=== PATIENT | female | born 1985 | race Caucasian/White ===

== ENCOUNTER 2018-04-09 18:13 | Emergency (ER) | payer BC, SELFPAY ==
--- NOTE | 2018-04-09 18:13 | DT_ITS ---
This patient was seen during an EMR downtime April 05, 2018 - April 12, 2018. This patient may have a combination of paper and electronic documentation or all paper documentation. All documentation is viewable within the e-chart portion of [employer] for each patient visit.
--- OUTSIDE RECORDS SUMMARY | 2018-04-14 16:34 | XMS RPT_ITS ---
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 SignedIntakeVital Signs10/29/17 Height 5 ft 6 in10/29/17 Weight: 131 lb10/29/17 Body Mass Index (BMI) 21.112 Blood Pressure 124/ Blood Pressure Location Rt brachialIntakeVisit Reasons: dizzy/no PCPChief Complaint: dizzinessIs patient in pain?: NoAllergiesNo Known Allergies Allergy (Verified 08/21/17 09:29)Medicationsfluticasone 50 mcg/actuation nasal spray,suspension 2 spray INTRANASAL QDAY #16 g 10/29/17 [RxConfirmed 10/29/17]PFSHMedical History ( Reviewed 10/29/17 @ 17:45 by Eugene Bills, TOP AND TRIM WORKER-C)Abdominal pain (Acute)Ovarian cyst (Acute)Surgical History History of placement of ear tubes (Acute)History of tonsillectomy (Acute)history of mole removal (Acute)Family History Mother DiabetesCancerskinFather HypertensionHyperlipemiaAnxiety and depressionBrother celiacGrandmother CancerskinDiabetesSocial HistorySmoking Status: Current every day smokerhow long ago did patient quit smokinalcohol intake: neverwhat type of physical activity do you participate in: noneHPIdizzy/no PCP:Chief Complaint: dizzinessDetails: ALIN LEÓN, is a 32 F who presents to the office today for for an acute visit ofdizziness. She has no significant past medical history.The patient states that over the past month or so, she has had 3 dizzy spells where she noted achange in vision and a headache. On one occasion she became nauseated as well. The episodeslasted a couple minutes and resolved after sitting down. She is not currently having anysymptoms at this time. She denies any chance of at this time. She states that herallergies have been flared up over the past month as well as she constantly has nasalcongestion and sometimes has pressure in her ears. She does state that she has a history ofrecurrent ear infections in the past. She states that her blood pressure runs low at timeswith the systolic being 100 and diastolic between 60s, however the patient tries to make surethat she has adequately hydrated throughout the day. She denies any other alleviating oraggravating factors. She does state that her mother has a history of diabetes and that she haschecked her blood sugar in the past some has not been low. She does note occasional legcramping as well and states that she was previously seen in the emergency department forabdominal pain with questionable appendicitis, however she states that it ended up being aruptured ovarian cyst. She currently denies any abdominal pain at this time.She otherwise denies any fever, chills, lesions, syncope or presyncopal episodes. She deniesany history of vertigo.Duration: about a monthROSConstConstitutional: Positive for headache(s) (with the dizziness);no weight change, body ache, chills, fatigue, sleep problems, fever(s), change in appetite,snoring, weakness, frequent falls or excessive sweatingEyesEyes: Positive for blurry vision;no change in vision, eye pain or light sensitivityENTENT: Positive for headache(s) (with the dizziness) and nasal congestion;no abnormal hearing, ear pain, tinnitus, sore throat or neck painRespRespiratory: No snoring, cough, shortness of breath or wheezingCardioCardiology: No excessive sweating, chest pain at rest, chest pain with exertion, shortness ofbreath, dyspnea on exertion, palpitations , orthopnea or lightheadednessGastroGI: Positive for nausea/dyspepsia (with the dizzy spells);no abdominal pain, change in bowel habits, constipation, diarrhea, vomiting or crampingMuscMusculoskeletal: No neck pain, abnormal walking, joint pain, back pain, limited range of motionor muscle weaknessSkinSkin: No redness, dry skin, itching, lesions, wounds or rashNeuroNeurology: Positive for headache(s) (with the dizziness) and dizziness;no weakness, frequent falls, abnormal hearing, abnormal walking, abnormal speech or memory lossPsychPsychiatric: No change in appetite , No memory loss, Positive for anxiety, Positive fordepression (was on wellbutrin in the past, feels better now.), No Thoughts of harmingyourself/OthersEndoEndocrine: No fatigue, excessive sweating, cold intolerance, increased thirst/drinking, heatintolerance, flushing or increased hungerAller/ImmAllergy/Immunologic: No wheezing, itchy eyes, hives or seasonal allergy symptomsHema/LympHematologic/Lymphatic: No easy bleeding, easy bruising or enlarged lymph nodesExamConstGeneral: cooperative, comfortable, no acute distressNutritional Appearance: average body habitus, well nourishedOrientation: alert, oriented z4Uqydaixixve: mental status not alteredHENMTHead: normal to inspectionEars: hearing grossly normal bilaterally, TM abnormal scarred bilaterally and with fluidbehind the TM (Clear) bilaterallyNose: external nose normal, no nasal polyps, nasal discharge clear bilaterally, mucousmembranes and turbinates abnormal erythematous bilaterally and other (Edematous)Face and sinus: normal facial examMouth: oral mucosae normalTeeth and gingiva: dentition normalThroat: posterior oropharynx normalEyesGeneral: appearance normal, both eyes and all related structuresVisual Saunders: normal visual saunders by confrontationAlignment and Position: alignment normalPupils: PERRLEOM: No nystagmusRespEffort AND Inspection: normal respiratory effort, able to speak in complete sentences, normalrespiratory pattern, symmetric chest movement, no audible wheezes, no coughAuscultation: Bilateral: Clear to AuscultationCardioPalpation: normal PMIRate: regular rateHeart Sounds: S1 normal, S2 normal, normal S1 and S2, no click, no gallops, no murmurs, no rubsMuscMusculoskeletal: No joint tenderness, decreased ROM or muscle weaknessSkinGeneral: no rashes or lesions noted, elasticity normal, turgor normalLesions: no lesionsRashes: no rashesNeuroGeneral: alert, awake, oriented x3, CN's II-XI intact bilaterallyCranial Nerves: no nystagmusSpeech: speech normalGait: normal gaitMotor: muscle tone normal throughoutExtremGeneral: normal to inspection, normal gait, no edema, no pedal edemaPsychAppearance: grossly normalMental Status: mental status grossly normalAffect: normal affectAttitude: cooperativeThought Process: normalAssessment AND Plan1. Chronic non-seasonal allergic rhinitis, unspecified trigger J30.89; J30.89PlanThe patient does have symptoms consistent with that of allergic rhinitis. Her nasal mucosa isgrossly edematous bilaterally and she has clear fluid present bilateral TMs. Will startpatient on Flonase and discussed the use of a daily antihistamine. Educated patient not totake her antihistamine combined with Sudafed as this can be addictive and that plain loratadinewould suffice. Patient verbalized understanding.2. Dizziness P86DaxjKgabdyoa for orthostatic hypotension on exam. Did however discussed adequate fluid intake. Donot believe that this is vertigo,. Believe that this may be secondary due to inner ear fluid.3. Leg cramping R25.2PlanWe will check an electrolyte panel and also magnesium level. Discussed adequate fluidhydration.OrdersOrders:4. Encounter for preventative adult health care examination Z00.00PlanPatient will follow up in 1 month for her annual physical/well visit. She states she chmb-ap-kifw on the influenza vaccination.Donaldo disclaimerPlan DetailOther OrdersOrders:Other MedicationsNew:fluticasone 50 mcg/actuation (Flonase Allergy Relief) adminis2 sprays Intranasal QDAYter into each nostrilFollow Up1 month annual physicalCodingLevel of Care CodeOff vis,new,level 3DiagnosesChronic non- seasonal allergic rhinitis, unspecified trigger J30.89; J30.89Chronicity: chronicAllergic rhinitis trigger: unspecifiedAllergic rhinitis seasonality: non- seasonalDizziness R42Leg cramping R25.2Encounter for preventative adult health care examination Z00. 1800 <Electronically signed by Eugene FERRER>Date Eugene GARIBAYCCosigner Signature: Date (if applicable)CC: PROGRESS Observed: 08/28/2017 Status: COMPLETED Source: [place] 10:16 AM [facility] [place] [facility] O ID: [id number]: Darling Ballard MaService: (none) Author Type: (none)Type: Progress NotesFiled: 08/28/2017 10:20 AMNote Text:31 year old female here for INACTIVATED INFLUENZA VACCINE.9698-5919 SeasonPatient is identified by name and date of : Yes [] CONTRAINDICATIONS colorenhanced sectionAge less than 6 months? NoAllergy to eggs, chicken, chicken feathers, or chicken dander? NoAllergy to thimerosal (a preservative) or formaldehyde? NoHistory of severe reaction to any vaccine component or a previous dose ofinfluenza vaccination? NoHistory of Guillain-Amsterdam Syndrome within 6 weeks after a previousinfluenza vaccine? NoCurrent moderate or severe illness? NoCurrent temperature greater or equal to 100.4F? NoHistory of Bone Marrow Transplant in past 6 months or solid organtransplant in the past 3 months ? No [] VERIFICATIONcolor enhanced sectionWas the answer Yes for any of the above contraindications? Nocontraindications present. Acceptable to proceed with vaccine.Patient/ guardian agrees the above answers are true to the best of theirknowledge? YesFlu vaccine information sheet given? YesSee immunization activity in [facility] for details of immunizationsadminstered today.Patient age: [age] year old For The 4621-3325 Flu Season 6-35 months old: Fluzone 0.25 ml - IM (Preservative Free)3 years of age: Fluzone 0.5 ml - IM (Preservative Free)3 years and older: Fluzone 0.5 ml- IM-(with Preservatives)65+ years old: Fluzone High-Dose 0.5 ml - IM ( Preservative Free)REMEMBER: If patient is less than 9 years of age and this is the firstvaccine of Influenza to be received in any flu season, they should receivea second dose in one months time.Darling Ballard Ma CNNURSE Observed: 08/28/2017 Status: COMPLETED Source: [place] 10:00 AM [facility] REPOSITORY Nurse Visit (PEDSWS) ---------ALIN LEÓN ([id number]) 1985 FDate Time Provider Dnbjuteurg47/27/17 10:00 AM NURSE/[facility] PEDSWS During your visit today, we recorded the following information about you:Darling Ballard Owen 08/28/2017 10:20 AM Yuxsfj37 year old female here for INACTIVATED INFLUENZA VACCINE. SeasonPatient is identified by name and date of : Yes [] CONTRAINDICATIONS color enhancedsectionAge less than 6 months? NoAllergy to eggs, chicken, chicken feathers, or chicken dander? NoAllergy to thimerosal (a preservative) or formaldehyde? NoHistory of severe reaction to any vaccine component or a previous dose ofinfluenza vaccination? NoHistory of Guillain-Amsterdam Syndrome within 6 weeks after a previous influenzavaccine? NoCurrent moderate or severe illness? NoCurrent temperature greater or equal to 100.4F? NoHistory of Bone Marrow Transplant in past 6 months or solid organ transplant inthe past 3 months ? No [] VERIFICATION colorenhanced sectionWas the answer ANDquot; YesANDquot; for any of the above contraindications? Nocontraindications present. Acceptable to proceed with vaccine.Patient/guardian agrees the above answers are true to the best of theirknowledge? YesFlu vaccine information sheet given? YesSee immunization activity in [facility] for details of immunizations adminsteredtoday.Patient age: [age] year old For The Flu Season 6-35 months old: Fluzone 0.25 ml - IM (Preservative Free)3 years of age: Fluzone 0.5 ml - IM ( Preservative Free)3 years and older: Fluzone 0.5 ml- IM-(with Preservatives)65+ years old: Fluzone High-Dose 0.5 ml - IM (Preservative Free)REMEMBER: If patient is less than 9 years of age and this is the first vaccineof Influenza to be received in any flu season, they should receive a seconddose in one months time.Darling Alonso Provider: ADDIE DOWNEY [[id number]]Allergies As of Date: 2016(No Known Allergies)Date Reviewed: 12/07/2016Reviewed by: Morena Mahmood Snowboarding Instructor - Fully AssessedReason for Visit: Imm/Inj [58] Cmt: Flu VaccinePrimary Visit Diagnosis:Need for vaccination [Z23 ]Order(s):INFLUENZA VACCINE QUADRIVALENT AGE 3 YRS PLUS + IM [[id number]] Order #: [id number] as of 08/28/2017 Sig: [id number]-G* Take 1 Dose by mouth as direc* ONDANSETRON 4 MG DISINTEGRATI* Take 1 tablet by mouth every * * VITAMIN,CALCIUM, MINE* Take 1 tablet by mouth.Problem List As Of Date 08/28/2017 Noted Resolved History of depression [Z86.59] INVALID FOR*04/25/2015 More... Quit smoking [ Z87.891] INVALID FOR*04/25/2015 More... needs rhogam [O09.899] INVALID FOR*04/25/2015 Supervision of other normal [Z34.80] INVALID FOR* More... GBS (group B Streptococcus carrier), +RV cultur*INVALID FOR*08/17/2014Encounter Number: [id number] Status:Closed by DARLING BALLARD MA on 08/28/17 EMERGENCY DEPARTMENT Observed: 08/22/2017 Status: F Source: [place] SUMMARY 5:08 PM [facility] [address] [place], [place] [address]Uqbgzndnh Department Cpvwwoc00/20/17 0956MR#: [id number] Acct: [id number]: ALIN LEÓN Rep #: [id number]: 1985 31 From: Juan Diego Hancock DOPCP: Care Physician,No Primary Status: DEP ER- ER Visit SummaryDate of Service: 08/21/17Chief Complaint: Abdominal painHistory of Present Illness: The patient is a 31 F who presents with abdominal pain. Shedescribed this as a aching sensation. She states it began last night around 2200 hrs. He hasbeen constant since. She denies any diarrhea or constipation. No nausea vomiting. No urinarysymptoms. No fevers. She did not eat breakfast this morning due to been afraid as to what itwill make her stomach feel like. She states the right lower side of her abdomen feels worsethan any other part but she feels it diffusely across. Last menstrual period was 2 weeks ago.Physical Examination: Afebrile vital signs are stableGen: Well-nourished well-developedHead: Normocephalic atraumaticEyes: Perrl EOMIENT: TMs clear no rhinorrhea moist mucous membranesNeck: Supple no lymphadenopathy no JVD nontenderCVS: Regular rate rhythm no murmurs normal S1-T1Fltcoklpddf: No distress clear to auscultation bilaterally chest nontenderAbdomen: Soft nondistended normal bowel sounds no masses mild tenderness to palpation diffuselymoderate to palpation in the right lower quadrant without guarding or rebound.Back: NontenderExtremity: Nontender no edemaSkin: Normal color no rashNeuro: alert orientated 3 CN II-XII intact normal strength sensation reflexes gait cerebellarPsych: Normal affect normal moodTest Results: White count is elevated at 15.5. Urinalysis normal. test negative.CT abdomen pelvis demonstrated a 9 mm tubular structure with possible inflammatory changes. CTwas read as cannot rule out appendicitis. There is also an apparent right ovarian cyst withpossible recent rupture.Emergency Department Course and Treatment: Dr. Sullivan is the on- call surgeon today. He came tot emergency department to evaluate the patient. It is his opinion that a laparoscopy is notindicated at this time. Patient will be discharged home follow-up with him tomorrow ifcontinued or worsening symptoms or return to the emergency department. Patient is verycomfortable with this plan.Disposition: HomeImpression:1. Acute abdominal pain2. Right ovarian cyst3. Possible acute appendicitisED Disposition- Plan for ED Patient:Disposition: Home or Assisted LivingChi Complaint: Abd PainInstructions: ED Abdominal Pain Appendx PossReferrals:Care Physician,No Primary [Primary Care Provider] -Sharan Gibbs MD [STAFF PHYSICIAN] - 1 Day for another examWhat to do if you have ProblemsFor any increased pain, shortness of breath, bleeding, nausea or vomiting, chest pain, or anyunexpected problems, contact your Primary Care Provider. Call [facility] ([phone])or report to the closest Emergency Room.Call 911 if necessary. [phone] <Electronically signed by Juan Diego Hancock DO>Date Juan Diego Hancock DOCosigner Signature (If Indicated): Date CC: No Primary Care Physician CONSULTATION Observed: 08/21/2017 Status: F Source: [place] 6:58 PM [facility] [address] [place], [place] [address]Vjsxblhgeyzv08/20/17 1850#: [id number] Acct: [id number]: ROMELIA,ALIN Rep #: [id number]: 1985 31 From: Sharan Gibbs MDPCP: Care Physician,No Primary Status: DEP ER YLocation: EDProblem List(1) Abdominal painStatus: AcuteQualifiers:Abdominal location: lower abdomen, unspecified Qualified Code(s): R10.30 - Lower abdominalpain, unspecifiedReason for ConsultDate of Consultation: 08/21/17History of Present Illness:The patient is a 31 year old F who presented to the emergency room today with a almost 24 hourhistory of lower abdominal pain. I was asked to see this patient by emergency room physician electronic copy my surgical consult recommendations will return to him. Patientdeveloped lower abdominal pain was not able to sleep all night. She points to the low abdomenbelow the umbilicus and extending to both sides. She has never had a pain like this before.Laboratory was obtained demonstrating white count of 15.5 and hemoglobin 15.4 hematocrit 46 perry platelet count of 337,000 [address] scan was obtained suggesting a tubularstructure in the right lower quadrant. Possible appendicitis though the interpretingradiologist does not actually state acute appendicitis. There is felt to be stranding aroundthe cecum. There is some free fluid in the pelvis. There is a ruptured ovarian cyst.I was asked to see this patient in part secondary to the presenting complaint of abdominal painleukocytosis and unfortunately vague CT interpretation. I initially reviewed the CT with ourcal radiologist Dr. Bentley and the findings on the CT interpretation could not besubstantiated. There was felt to be possibly a normal sized appendix in the right lowerquadrant though this was indeterminate. There was not felt to be pericecal stranding nor adefinitive acute appendicitis on CT. Doubt this actually would fit well with the patient. Shedenies fever. There is been no nausea or vomiting. No change in bowel habits no diarrhea noconstipation. She states that actually now the pain is improved over yesterday. The pain isnot localizing to the right lower quadrant.Past Medical HistoryAllergiesNo Known Allergies Allergy (Verified 09:29)Home Medications:Ambulatory OrdersMedication Instructions RecordedNo Known/Unobtainable [No Known 08/21/17Home Medications]Surgical History: - - PE tubes and tonsillectomy and adenoidectomy as a childGYN History: No pertinent DIRECT SUPPORT STAFF historySmoking Status: Current every day smoker- *Family History OffspringHistory Items: UnknownReview of SystemsConstitutional: Denies: Weight ChangeEyes: Denies: Blurred vision, Vision ChangeHEENT: Denies: Ear Pain, Eye PainCardiovascular: Denies: Chest Pain, ClaudicationRespiratory: Denies: Cough, Shortness of BreathGastrointestinal: Reports: - - Mild diffuse low abdominal pain bilaterally.Genitourinary: Denies: Dysuria, HematuriaMusculoskeletal: Denies: Leg PainSkin: Denies: JaundiceNeurological: Denies: ConfusionPsychiatric: Denies: DepressionEndocrine: Denies: Change in Body HabitusHematologic/ Lymphatic: Denies: Easy Bleeding- Physical ExamGeneral: Alert, Oriented x3, Cooperative, No apparent distressHEENT: AtraumaticOral: Moist MucosaNeck: SuppleLungs: Clear to auscultationCardiovascular: Regular rateAbdomen: Bowel Sounds Present, Soft, - - Very minimal tenderness to quite deep palpation rightlower quadrant. Squishy bowel. No mass. No rebound. No guarding. No inguinal hernia.Extremities: No clubbingSkin: No rashesMusculoskeletal: No Tenderness to Palpation of Joints or ExtremitiesVital SignsTemp Pulse Resp BP Pulse Ox97.9 F 91 16 115/79 09:29 13:10 08/21/17 13:10 08/21/17 13:10 08/21/17 13:10Oxygen Delivery Method Room AirWeight: 132 lb 0.91 ozBody Mass Index (BMI) 21.3Laboratory Tests Past 24 HrsWBCRBCHgbHctMCVMCHMCHCRDWRDW DifferentialPlt CountMPVImmature Gran % (Auto)Assessment/PlanI have in detail reviewed the patient's laboratory and imaging and clinical presentation. Christianne discussed with the patient treatment options. Currently her symptoms are improved overyesterday. I am not finding her particularly tender in the right lower quadrant. Imagingreviewed with local radiology does not confirm findings that would suggest acute appendicitis.With all of this in mind I have a lower suspicion for acute appendicitis at this time. Thepatient is very much aware of her situation. I believe that she is a highly motivated patientwho will be able to notify us if she has abdominal deterioration. I feel comfortable allowingher to be discharged. The patient is additionally provided a contact number and card and sheis to phone call me during my office hours tomorrow morning with a progress report. Thepatient is aware that if she deteriorates prior to that she is to return to the emergency room.My diagnosis is one of a ruptured ovarian cyst with peritoneal irritation as a consequence ofthat.She has had an opportunity to ask and have questions answered. She is very much agreeable withthis plan of approach.I very much appreciate the kind opportunity of assisting with her surgical careSharan Gibbs M.D., F.A.C.S.08/21/17 [id number] <Electronically signed by Sharan Gibbs MD>Date Sharan Gibbs MDCosigner Signature (if applicable): Date CC: Juan Diego Hancock DO; No Primary Care Physician Signed URINALYSIS, COMPLETE Collected: 08/21/2017 Status: F Source: [place] 10:20 AM [facility] REPOSITORY Order Comment: Order Date: 08/21/17How was Urine Obtained? CLEAN CATCH TYPE CODE TESTS RESULT OUT OF RANGE REFERENCE UNITS LAB L400.3000 Normal Yellow COLOR Yellow LAB L400.3050 Normal Clear CLARITY Clear LAB L400.3200 Normal Normal mg/dl GLUCOSE, UR Normal LAB L400.3300 Normal Negative mg/dL BILIRUBIN Negative URINE LAB L400.3400 Normal Negative mg/dl KETONE UR Negative LAB L400.3465 Normal 1.002-1.030 SP.GR. 1.010 DIPSTX LAB L400.3550 Normal 5.0 - 8.0 pH UR 6.5 LAB L400.3600 Normal Negative mg/dl PROT DIPSTX Negative LAB L400.3700 Normal Normal mg/dl UROBILI Normal LAB L400.3750 Normal Negative NITRITE UR Negative LAB L400.3780 High Negative /ul OCCULT 25 BLOOD-UR LAB L400.3800 High Negative /ul LEUK 25 ESTERASE LAB L400.4050 Normal 0-5 /hpf WBC 0-5 SEEN LAB L400.4100 Normal 0-5 /hpf RBC-UA 0-5 SEEN LAB L400.4150 Normal 5-10 /hpf SQUAM EPI 0-5 SEEN LAB L400.4300 Normal None Seen /hpf BACTERIA RARE LAB L400.4350 Normal <or=2+ /hpf MUCUS, RARE URINE Performed By: #### L400.0001 ####[facility] [address] [place], [address] CBC W/DIFF, AUTOMATED Collected: 08/21/2017 Status: C Source: [place] 10:00 AM [facility] REPOSITORY TYPE CODE TESTS RESULT OUT OF RANGE REFERENCE UNITS LAB L100.1000 High 4.4-11.0 K/mm3 WBC 15.5 LAB L100.1200 Normal 4.2-5.4 M/mm3 RBC 4.97 LAB L100.1300 High 12.0-15.0 g/dl HGB 15.4 LAB L100.1400 Normal 37-47 % HCT 46.1 LAB L100.1500 Normal 81-99 fL MCV 92.8 LAB L100.1600 Normal 27.0-32.0 pg MCH 31.0 LAB L100.1700 Normal 32-36 g/gl MCHC 33.4 LAB L100.1810 Normal 11.6-14.6 % RDW 13.1 CV LAB L100.1820 High 35.1-43.9 fl RDW 44.7 SD LAB L100.1900 Normal 150-450 K/mm3 PLT 333 LAB L100.2000 Normal 6.2-12.0 fl MPV 9.6 LAB L100.2100 High 47-70 % NEUT% 72.2 LAB L100.2200 Low 19-41 % LY% 15.7 LAB L100.2300 High 0-10 % MONO% 11.4 LAB L100.2400 Normal 0-5 % EO% 0.1 LAB L100.2500 Normal 0-1 % BASO% 0.3 LAB L100.2550 Normal 0.0-0.9 % IM 0.300 GRAN % Result Comment: IG% - Immature Granulocytes (promyelocytes, myelocytes andmetamyelocytes) > 1% indicates that a LEFT SHIFT is Present. LAB L100.2620 High 2.0-7.7 X10 3/uL Absolute 11.2 Neut LAB L100.2720 Normal 0.83-4.51 X10 3/ul Absolute 2.42 Lymph LAB L100.4500 Normal SMEAR COMMENT COMMENT Result Comment: SLIDE SCANNED - MONOCYTOSIS NOTED. LAB L100.9900 Normal PATH Reviewed REV Result Comment: Neutrophilic leukocytosis.Clinical correlation necessary.Remington Guillaume M.D. 08/24/17 AMENDED REPORT 08/24/17 1336 PATH REV previously reported as: March neal Performed By: #### L100.0100 ####[facility] [address] [place], [place], [id number] COMPREHENSIVE METABOLIC Collected: 08/21/2017 Status: F Source: [place] PROFIL 10:00 AM [facility] REPOSITORY TYPE CODE TESTS RESULT OUT OF RANGE REFERENCE UNITS LAB L501.0100 Normal 70-110 mg/dL GLU 88 LAB L501.1000 Normal 7-18 mg/dL BUN 8 LAB L501.1100 Normal 0.55-1.02 mg/dL 0.89 CREAT,SERUM Result Comment: The validity of the calculated GFR AND GFRAA in patients over70 years has not been determined. Clinical correlation isessential. LAB L501.1110 Normal >60 mL/min EST GFR 79 Result Comment: Non- GFR Calc LAB L501.1115 Normal >60 mL/min EST GFR - 95 AA Result Comment: GFR Calc LAB L501.1255 Normal ml/min Estimated 86.53 CRCL LAB L501.1300 Low 10-20 RATIO BUN/CRE 9.0 LAB L501.1500 High 6.4-8. g/dL T PROT 8.7 2 LAB L501.1800 Normal 3.4-5. g/dL ALB 4.3 0 Result Comment: Please note revised Albumin AND Globulin reference rangeeffective 2017. LAB L501.1950 High 2.2-4.2 g/dL GLOB 4.4 LAB L501.2000 Normal 0.9-2.4 RATIO A/G 1.0 LAB L501.2200 Normal 8.5-10.1 mg/dL CA 8.9 LAB L501.4100 Low 15-37 U/L AST 13 LAB L501.4305 Normal 45-117 U/L ALK P 107 LAB L501.4405 Normal 12-78 U/L ALT 22 LAB L501.4600 Normal 0.20-1.00 mg/dL T BILI 0.50 LAB L501.5300 Normal 136-145 mmol/L NA 138 LAB L501.5600 Normal 3.5-5.1 mmol/L K 3.5 LAB L501.5900 Normal 98-107 mmol/L CL 103 LAB L501.6100 Normal 21.0-32.0 mmol/L CO2 27.0 LAB L501.6200 Normal 5-15 GAP 8 Performed By: #### L500.4050, L501.2450 ####[facility] [address] [place], [address] LIPASE Collected: 08/21/2017 Status: F Source: [place] 10:00 AM [facility] REPOSITORY TYPE CODE TESTS RESULT OUT OF RANGE REFERENCE UNITS LAB L501.2450 Normal 73-393 U/L LIPASE 98 Performed By: #### L500.4050, L501.2450 ####[facility] [address] [place], [address] ,SERUM,HCG QUALI. Collected: Status: F Source: [place] 08/21/2017 10:00 AM [facility] REPOSITORY TYPE CODE TESTS RESULT OUT OF REFERENCE UNITS RANGE LAB L700.6700 Normal =>Qualitati mIU/mL HCG Qual < 1 ve triggr LAB L700.7000 Normal 0-9 Nonpreg Negative HCGSQUAL NEGATIVE Performed By: #### L700.6800 ####[facility] [address] [place], [address] ABDOMEN/PELVIS WITH Observed: 08/21/2017 Status: F Source: [place] CONTRAST 9:46 AM [facility]ITORY [facility] [address] [place], [place] [address]Bfynezt/Pelvis WITH ContrastMR#: [id number] Acct: [id number]: ALIN LEÓN Rep #: [id number]: 1985 F 31 From: Mendoza Schaffer DOPCP: Care Physician,No Primary Status: REG ERStudy: Abdomen/Pelvis WITH Contrast Date of Exam: 08/21/17Exam# [id number] Ordering Dr: Juan Diego Hancock DOSTUDY: CT ABDOMEN AND PELVIS WITH CONTRASTREASON FOR EXAM: Female, 31 years old. Abdominal pain. Right lowerquadrant pain.RADIATION DOSAGE (If Supplied By Facility): CTDIvol = ( 7.53 ) mGy, DLP = ( 380.67 ) mGycmTECHNIQUE: Transaxial images were obtained from the dome of the diaphragmto the symphysis pubis with oral contrast. 75ML ml of Isovue 300 contrastwas administered. Sagittal and coronal images were reconstructed.Individualized dose optimization techniques were used for this CT.COMPARISON: None. FINDINGS:The visualized lung bases are unremarkable. The visualized portions of theheart are within normal limits.Normal liver. Normal gallbladder and extrahepatic biliary system. Normalspleen. Normal pancreas.Normal bilateral adrenal glands.Normal right kidney. Normal left kidney.Normal visualized stomach. Normal small intestine. Normal colon. Thereis a mildly dilated tubular structure in the right lower quadrant withoutcontrast measuring 9 mm. There appears to be some periappendiceal fatstranding. Acute appendicitis cannot be excluded.Normal abdominal aorta. Normal inferior vena cava. Normalretroperitoneum.Normal urinary bladder. Normal visualized uterus. Small rim-enhancingfollicle in the right ovary, likely recently ruptured. Trace pelvic freefluid.Normal abdominal wall. L5-S1 degenerative disc disease. ORDER #: [id number] CT/Abdomen/ Pelvis WITH ContrastIMPRESSION:1. Possible acute uncomplicated appendicitis. Recommend clinicalcorrelation2. Possibly recently ruptured right ovarian follicle. Trace pelvic freefluidElectronically Signed:Mendoza Schaffer DO at 12:24 EDTTel , Service support , AF: Juan Diego Hancock DO; No Primary Care Physician Field Research Assistant:Signed ALLERGIES ALLERGIES DATE TYPE / CODE NAME / CODE REACTION SEVERITY SOURCE 08/21/2017 Drug No Known Unknown [facility] Allergy/416 Allergies/J08145 Hospital 406522(SNOM 0388(RXNORM) Repository ED CT) Drug/546027 No Known [facility] 003(SNOMED Allergies [facility] CT) System Repository Drug NO KNOWN [facility] Class/75795 ALLERGIES [place] 1003(SNOMED Repository CT) ENCOUNTERS ENCOUNTERS ADMIT/DISCHARGE ACCOUNT ADMITTING ENCOUNTER LOCATION SOURCE NUMBER CLASS 04/09/2018/04/09/20 [id number] [place], Emergency [address] ing:[facility] System EDRoom: WR Repository 11/26/2017/11/26/19 [id number] Ambulatory BMSBuilding:B Bhupendra [address] MS.[facility] Repository 10/30/2017/11/03/19 [id number] Ambulatory [address] Repository 10/30/2017 [id number] Ambulatory [facility] ing:MTLAB Repository 10/29/2017/10/29/20 [id number] Ambulatory BMSBuilding:B Bhupendra 17 MS.[facility] Repository 08/28/2017/08/31/20 [id number] Ambulatory [address] Repository 08/21/2017/08/21/20 [id number] Emergency [address] ing:ED Repository PAYERS PAYERS ENCOUNTER GUARANTOR PAYER SUBSCRIBER SOURCE 04/09/2018 ALIN Toribio Primary Insurance:[address] [place] [address] Mal[facility] MCINTIREDOB: [employer] LIABPolicy MCINTIREDOB: [facility] [id number] Number: Effective [id number] [facility] WOJCIECH FLOOD, Date:2018-04-09 [facility] [id number], [place] [address]Vsr: Name:CD:[id number]: [place], [place] () [address]BQ: [phone] () [phone] () 11/26/2017 Kaye E Primary Kaye Dulce ArroyoBhupendra [id number] Insurance:ANTHEMPolic McintireDOB: [facility] WOJCIECH FLOOD Number: [id number] [facility] Care [facility] [address]Xax: [id number] Repository Date:1381-46-29[address] () [address], [place] [address]FG: 11/26/2017 Secondary NOT GIVENUNK Bhupendra Insurance:SELF PAY [facility] Number: Effective Repository Date:2017-10-29 10/30/2017 Kaye Cardona Primary Kaye Cardona Bhupendra [id number] Insurance:ANTHEMPolic McintireDOB: Community WOJCIECH [address], y Number: [id number] Health Care Center [address]Gwg: [id number] Repository Date:5940-70-55Js [address] () [id number] [place] [address]ME: 10/30/2017 Secondary NOT GIVENUNK [place] Insurance:SELF PAY [facility] Number: Effective Repository Date:2017-10-30 10/29/2017 Kaye Cardona Primary Kaye Dulce Bhupendra [id number] Insurance:ANTHEMPolic McintireDOB: Community WOJCIECH RDSHREVE, y Number: [id number] Health Care Center [address]Ich: [id number] Repository Date:0450-95-30Ea [address] () [id number] [place] [address]BH: 10/29/2017 Secondary NOT GIVENUNK [place] Insurance:SELF PAY [facility] Number: Effective Repository Date:2017-10-29 08/21/2017 Kaye Cardona Primary Kaye Cardona Bhupendra [id number] Insurance:ANTHEMPolic McintireDOB: Community WOJCIECH [address]SH[address]VE, y Number: [id number] Health Care Center [address]Nne: [id number] Repository Date:[id number] [address] () [id number], [place] [address]EM: 08/21/2017 Secondary NOT GIVENUNK [place] Insurance:SELF PAY [facility] Number: Effective Repository Date:2017-08-21
== END 2018-04-09 18:25 | disposition left against medical advice (07) ==
LOC: ED 04-14 13:24
DX: R69 Illness, unspecified (principal)

== ENCOUNTER → 2018-07-15 10:12 | Outpatient (CLI) | payer BC, SELFPAY ==
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
--- OUTSIDE RECORDS SUMMARY | 2018-07-15 13:46 | XMS RPT_ITS ---
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 3DiagnosesChronic non- seasonal allergic rhinitis, unspecified trigger J30.89; J30.89Chronicity: chronicAllergic rhinitis trigger: unspecifiedAllergic rhinitis seasonality: non- seasonalDizziness R42Leg cramping R25.2Encounter for preventative adult health care examination Z00. 1800 <Electronically signed by Eugene Bills NP-C>Date Eugene Bills FULL STACK WEB DEVELOPER-CCosigner Signature: Date (if applicable)CC: PROGRESS Observed: 08/28/2017 Status: COMPLETED Source: [place] 10:16 AM [facility] REPOSITORY O ID: [id number]: Darling Ballard MaService: (none) Author Type: (none)Type: Progress NotesFiled: 08/28/2017 10:20 AMNote Text:31 year old female here for INACTIVATED INFLUENZA VACCINE.9044-0007 SeasonPatient is identified by name and date of : Yes [] CONTRAINDICATIONS colorenhanced sectionAge less than 6 months? NoAllergy to eggs, chicken, chicken feathers, or chicken dander? NoAllergy to thimerosal (a preservative) or formaldehyde? NoHistory of severe reaction to any vaccine component or a previous dose ofinfluenza vaccination? NoHistory of Guillain-Matthews Syndrome within 6 weeks after a previousinfluenza [...] information sheet given? YesSee immunization activity in [facility] for details of immunizationsadminstered today.Patient age: [age] year old For The 6088-3774 Flu Season 6-35 months old: Fluzone 0.25 [...] Ma CNNURSE Observed: 08/28/2017 Status: COMPLETED Source: [place] 10:00 AM [facility] REPOSITORY Nurse Visit (PEDSWS) ---------ALIN LEÓN ([id number]) 1985 [facility] Pkbmjprgei77/27/17 10:00 AM [facility] During your visit today, we recorded the following information about you:Darling Ballard Ma 08/28/2017 10:20 AM Yxagry70 year old female here for INACTIVATED INFLUENZA VACCINE.5345-5931 SeasonPatient is identified by name and date of : Yes [] CONTRAINDICATIONS color enhancedsectionAge less than 6 months? NoAllergy to eggs, chicken, chicken feathers, or chicken dander? NoAllergy to thimerosal (a preservative) or formaldehyde? NoHistory of severe reaction to any vaccine component or a previous dose ofinfluenza vaccination? NoHistory of Guillain-Matthews Syndrome within 6 weeks after a previous [...] information sheet given? YesSee immunization activity in [facility] for details of immunizations adminsteredtoday.Patient age: [age] year old For The 3825-3610 Flu Season 6-35 months old: Fluzone 0.25 [...] receive a seconddose in one months time.Darling Mellosurprise valley community hospitaljeff Provider: ADDIE DOWNEY [[id number]]Allergies As of Date: 2016(No Known Allergies)Date Reviewed: 12/07/2016Reviewed by: Morena Mahmood Patient Safety Sitter - Fully AssessedReason for Visit: Imm/Inj [58] Cmt: Flu VaccinePrimary Visit Diagnosis:Need for vaccination [Z23 ]Order(s):INFLUENZA VACCINE QUADRIVALENT AGE 3 YRS PLUS + IM [18167PUR] Order #: [id number] as of 08/28/2017 Sig: YJAVOCTXTCBWW-RQMBHGIGLDFYY-P* Take 1 Dose by mouth as direc* [...] B Streptococcus carrier), +RV cultur*INVALID FOR*08/17/2014Encounter Number: [id number] Status:Closed by DARLING BALLARD MA on 08/28/17 EMERGENCY DEPARTMENT Observed: 08/22/2017 Status: F Source: [place] SUMMARY 5:08 PM [facility] REPOSITORY [facility]ITALMedical Records [address]sp[address] [place], [place] [address]Osmbkgbkm Department Ztamcot84/20/17 0956MR#: [id number] Acct: [id number]: ALIN ELÓN Rep #: [id number]: 1985 31 From: Juan [...] nontenderCVS: Regular rate rhythm no murmurs normal S1-H7Rxooxmssrbn: No distress clear to auscultation bilaterally chest [...] your Primary Care Provider. Call [facility] ([phone])or report to the closest Emergency Room.Call 911 if necessary. 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[employer] SALESPERSON historySmoking Status: Current every day smoker- *Family [...] with her surgical careSharan Gibbs M.D., F.A.C.S.08/21/17 4305 <Electronically signed by Sharan Gibbs MD>Date Sharan Gibbs [facility] Signature (if applicable): Date CC: Juan Diego Hancock DO; No Primary Care Physician Signed URINALYSIS, COMPLETE Collected: 08/21/2017 Status: F Source: [place] 10:20 AM [facility] REPOSITORY Order Comment: Order Date: 08/21/17How was [...] MUCUS, RARE URINE Performed By: #### L400.0001 ####[facility] [address] [place], [place], [id number] CBC W/DIFF, AUTOMATED Collected: 08/21/2017 Status: C Source: [place] 10:00 AM [facility] REPOSITORY TYPE CODE TESTS RESULT OUT OF [...] as: March neal Performed By: #### L100.0100 ####[facility] [address] [place], [place], [address] COMPREHENSIVE METABOLIC Collected: 08/21/2017 Status: F Source: [place] [address]:00 AM [facility] REPOSITORY TYPE CODE TESTS RESULT OUT OF [...] GAP 8 Performed By: #### L500.4050, L501.2450 ####[facility] [address] [place], [address] LIPASE Collected: 08/21/2017 Status: F Source: [place] 10:00 AM [facility] REPOSITORY TYPE CODE TESTS RESULT OUT OF RANGE REFERENCE UNITS LAB L501.2450 Normal 73-393 U/L LIPASE 98 Performed By: #### L500.4050, L501.2450 ####[facility] [address] [place], [address] ,SERUM,HCG QUALI. Collected: Status: F Source: [place] 08/21/2017 10:00 AM [facility] REPOSITORY TYPE CODE TESTS RESULT OUT OF REFERENCE UNITS RANGE LAB L700.6700 Normal =>Qualitati mIU/mL HCG Qual < 1 ve triggr LAB L700.7000 Normal 0-9 Nonpreg Negative HCGSQUAL NEGATIVE Performed By: #### L700.6800 ####[facility] [address] [place], [address] ABDOMEN/PELVIS WITH Observed: 08/21/2017 Status: F Source: [place] CONTRAST 9:46 AM [facility] REPOSITORY [facility]OS[facility]ITALImaging [address] [place], [place] [address]Fhqvwka/Pelvis WITH ContrastMR#: [id number] Acct: [id number]: ALIN LEÓN Rep #: [id number]: 1985 F 31 From: Mendoza Schaffer DOPCP: Care Physician,No Primary Status: REG ERStudy: Abdomen/Pelvis WITH Contrast Date of Exam: 08/21/17Exam# [id number] Ordering Dr: Juan Diego Hancock DOSTUDY: CT [...] wall. L5-S1 degenerative disc disease. ORDER #: [id number] CT/Abdomen/ Pelvis WITH ContrastIMPRESSION:1. Possible acute uncomplicated appendicitis. Recommend clinicalcorrelation2. Possibly recently ruptured right ovarian follicle. Trace pelvic freefluidElectronically Signed:Mendoza Schaffer DO at 12:24 EDTTel , Service support , TR: Juan Diego Hancock DO; No Primary Care Physician Dialysis Rn:Signed ALLERGIES ALLERGIES DATE TYPE / CODE NAME / CODE REACTION SEVERITY SOURCE 07/09/2018 Drug No Known Unknown [facility] Allergy/416 Allergies/H01567 Hospital 337142(SNOM 0388(RXNORM) Repository ED CT) Drug/608370 No Known [facility] 003(SNOMED Allergies [facility] CT) System Repository Drug NO KNOWN [facility] Class/50755 ALLERGIES [facility] 1003(SNOMED Repository CT) ENCOUNTERS ENCOUNTERS ADMIT/DISCHARGE ACCOUNT NUMBER ADMITTING ENCOUNTER LOCATION SOURCE CLASS 07/15/2018 [id number] Ambulatory [facility] ding:MTRAD Repository 07/15/2018 [id number] [facility] ding:PT Repository 07/09/2018/07/09/20 [id number] Ambulatory BMSBuilding: Bhupendra 18 BMS.[facility] [place] [place] Repository 06/04/2018/06/04/20 [id number] Ambulatory BMSBuilding: Bhupendra 18 BMS.[facility] [place] [place] Repository 04/19/2018/04/19/20 [id number] Ambulatory BMSBuilding: [place] 18 BMS.[facility] [place] [place] Repository 04/09/2018/04/09/20 [id number] [place], Emergency [address] ding:[facility] System EDRoom: WR Repository 04/09/2018/04/09/20 [id number] Emergency [address] ding:ED Repository 04/09/2018 [id number] Ambulatory [address] [place] [address] Repository 11/26/2017/11/26/19 [id number] Ambulatory BMSBuilding: [place] 18 BMS.[facility] [place] [place] Repository 10/30/2017/11/03/19 [id number] Ambulatory [address] Repository 10/30/2017 [id number] Ambulatory [facility] ding:MTLAB Repository 10/29/2017/10/29/20 [id number] Ambulatory BMSBuilding: Bhupendra 17 BMS.[facility] [place] [place] Repository 08/28/2017/08/31/20 [id number] Ambulatory [address] Repository 08/21/2017/08/21/20 [id number] Emergency [address] ding:ED Repository PAYERS PAYERS ENCOUNTER GUARANTOR PAYER SUBSCRIBER SOURCE 07/15/2018 Kaye E Primary Kaye Dulce Huizar [id number] Insurance:ANTHEMPolic McintireDOB: [facility] WOJCIECH LANDRY, y Number: [id number] View Regional Medical Center [address]Apm: [id number] Repository Date:7333-43-34[address], [place] [address]AQ: 07/15/2018 Secondary NOT GIVENUNK Bhupendra Insurance:SELF PAY [facility] Number: Effective Repository Date:2018-07-15 07/15/2018 Kaye E Primary Kaye Huizar [id number] Insurance:ANTHEMPolic McintireDOB: Community WOJCIECH RDSHREVE, y Number: [id number] View Regional Medical Center [address]Kcw: [id number] Repository Date:8545-54-35Fw [address] () [address]Gwmfejx [place] [address]IS: 07/15/2018 Secondary NOT GIVENUNK [place] Insurance:SELF PAY [facility] Number: Effective Repository Date:2018-06-08 07/09/2018 Kaye E Primary Kaye Huizar [id number] Insurance:ANTHEMPolic McintireDOB: Community WOJCIECH RDSHREVE, y Number: [id number] View Regional Medical Center [address]Day: [id number] Repository Date:7980-86-37Eq [address] () [address]Sqxqjta [place] [address]NK: 07/09/2018 Secondary NOT GIVENUNK [place] Insurance:SELF PAY [facility] Number: Effective Repository Date:2018-07-09 06/04/2018 Kaye E Primary Kaye Huizar [id number] Insurance:ANTHEMPolic McintireDOB: Community WOJCIECH RDSHREVE, y Number: [id number] View Regional Medical Center [address]Ivs: [id number] Repository Date:3316-53-24Jb [address] () [address]Cnwaofc [place] [address]SC: 06/04/2018 Secondary NOT GIVENUNK Bhupendra Insurance:SELF PAY [facility] Number: Effective Repository Date:2018-06-04 04/19/2018 Kaye E Primary Kaye Huizar [id number] Insurance:ANTHEMPolic McintireDOB: Community WOJCIECH [address]SH[address], y Number: [id number] View Regional Medical Center [address]Zgk: [id number] Repository Date:9808-94-62Oz [address] () [address]Lzzvzrb [place] [address]XQ: 04/19/2018 Secondary NOT GIVENUNK Bhupendra Insurance:SELF PAY [facility] Number: Effective Repository Date:2018-04-19 04/09/2018 [facility] Insurance:[address] [place] [address] MCINTIREDOB: [employer] LIABPolicy MCINTIREDOB: [facility] [id number] Number: Effective [id number] System WOJCIECHYASH LANDRY, Date:2018-04-09 WOJCIECH Repository [place] [id number] [place] [address]Vii: Name::[id number]: [place]CIECH [place], [place] ([place]) [address]EL: (282) () [phone] () 04/09/2018 Kaye E Primary Kaye Huizar [id number] Insurance:ANTHEMPolic McintireDOB: Community WOJCIECH RICHARE, y Number: [id number] View Regional Medical Center [address]Vil: [id number] Repository Date:8385-28-73Bw [address] ) [address]Nohsvzb, [place] [address]EK: 04/09/2018 Secondary NOT GIVENUNK Bhupendra Insurance:SELF PAY [facility] Number: Effective Repository Date:2018-04-09 04/09/2018 [facility] MCINTIREDOB: Insurance:Self MCINTIREDOB: [facility] Hospitaly Number: [id number] Repository WOJCIECHYASH Landry, Effective Date: 4 [facility] [address]Ydr: Name:[facility] CentertenishaSHEYENNE, [place] [address]Qli: [phone] () 11/26/2017 Kaye E Primary Kaye Huizar [id number] Insurance:ANTHEMPolic McintireDOB: Community WOJCIECH ALEENA, y Number: [id number] View Regional Medical Center [address]Hdm: [id number] Repository Date:3358-12-03Qk [address] () [address]Pbmnyzi, [place] [address]WG: 11/26/2017 Secondary NOT GIVENUNK [place] Insurance:SELF PAY [facility] Number: Effective Repository Date:2017-10-29 10/30/2017 Kaye E Primary Kaye Cardona [place] [id number] Insurance:ANTHEMPolic McintireDOB: Community WOJCIECH RDSHREVE, y Number: [id number] View Regional Medical Center [address]Lfn: [id number] Repository Date:8282-64-18Ev [address] () [address]Adxtvhd, [place] [address]KS: 10/30/2017 Secondary NOT GIVENUNK Bhupendra Insurance:SELF PAY [facility] Number: Effective Repository Date:2017-10-30 10/29/2017 Kaye E Primary Kaye Dulce Bhupendra [id number] Insurance:ANTHEMPolic McintireDOB: Community WOJCIECH [address]SH[address], y Number: [id number] View Regional Medical Center [address]Yhv: [id number] Repository Date:4382-60-33Fw [address] () [address]Zbbclwr [place] [address]HS: 10/29/2017 Secondary NOT GIVENUNK [place] Insurance:SELF PAY [facility] Number: Effective Repository Date:2017-10-29 08/21/2017 Kaye E Primary Kaye Cardona Bhupendra [id number] Insurance:ANTHEMPolic McintireDOB: Community WOJCIECH RDSHREVE, y Number: [id number] View Regional Medical Center [address]Yqm: [id number] Repository Date:1983-30-71Ng [address] () [address]Gnhdslm, [place] [address]NU: 08/21/2017 Secondary NOT GIVENUNK [place] Insurance:SELF PAY [facility] Number: Effective Repository Date:2017-08-21
== END ==
PROVIDERS: Family Provider Internal Medicine; PCP Internal Medicine; Visit Provider Nurse Practitioner Family
DX: M54.6 Pain in thoracic spine (principal); R20.0 Anesthesia of skin; M48.07 Spinal stenosis, lumbosacral region
CPT/HCPCS: 72072; 72100

== ENCOUNTER 2018-07-20 09:30 | Outpatient (RCR) | payer BC, SELFPAY ==
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
--- OUTSIDE RECORDS SUMMARY | 2018-06-15 19:15 | XMS RPT_ITS ---
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 (FLONASE) 50 mcg/actuation nasal sprayUse 1 [place] in each nostril daily at bedtime.Disp: Rfl: PAP FLUID CERVICAL SCREENING [[id number]] Order #: [id number]. #:[id number] HPV W/GENOTYPE [ SQHPVHRR] Order #: [id number]. #:[id number] as of 2016 Sig: FLUTICASONE 50 MCG/ACTUATION * Use 1 [place] in each nostril d*Problem List As Of [...] Update Route: EACH NOSTRIL Sig: Use 1 [place] in each nostril daily at bedtime.Medications Discontinued During This Encounter Yjwvcbcanfazd-Vicvpkptfmuyr-HH (TYLE* 30 t* 0 12/07/2016 10/30/2017 Route: ORAL Sig: Take 1 Dose by mouth as directed. Patient not taking: Reported on 10/30/2017 Disc: Discontinued by Patient ondansetron orally disintegrating (Z* 2 ta* 0 12/07/2016 10/30/2017 Route: ORAL Sig: Take 1 tablet by mouth every 8 hours as needed for Nausea/Vomiting for up to 2 doses. Disc: Discontinued by Patient Dkjiewbv-Jb-Vlv- Fe-FA (PREN* 10/30/2017 Class: Historical Med Route: ORAL Sig: Take 1 tablet by mouth. Disc: Discontinued by PatientDisposition: Return in 1 year (on 2017) for Annual Exam.Follow-up and Disposition History RecordedLetter [facility] [place], [place] [address]Davly: Rachel A [address] [place] [address]CCF: [id number] Rachel,We are pleased to inform you that your [...] 8:00 a.m. and 5:00p.m.Sincerely,Beth Jasmine MDEncounter Number: [id number] Status: Closed by BETH JASMINE MD on 10/30/17 PROGRESS Observed: 10/30/2017 Status: COMPLETED Source: [place] 9:29 AM [facility] REPOSITORY HNO ID: [id number]: Beth JasmineService: (none) Author Type: PhysicianType: Progress NotesFiled: 10/30/2017 10:30 AMNote Text:Alin León is a 32 year old who presents for her annualgynecologic exam without complaints.Menses: cycles every 28-30 days and 7 days of flow.Contraception: vasectomyHPV vaccine: NoLast Pap: 2014 normal HPV: N/AHistory of abnormal pap: NoLast mammogram: neverObstetric History T2 L2 SAB0 TAB1 Ectopic0 Multiple0 Live Krompj9MFBB MEDICAL HISTORYDiagnosis Date- DEPRESSION- FRACTURE AGE 9 [...] external genitalia normal, normal Bartholin's glands, urethra, Brooksburg's glands, no vulvar lesions, no cervical lesions, [...] F Source: [place] PROFILE (BMP) 8:42 AM [facility] REPOSITORY TYPE CODE TESTS RESULT OUT OF [...] Performed By: #### L500.2500, L500.4100, L501.5200, L501.9520 ####[facility] [address] [place], [place], [id number] LIPID PROFILE Collected: 10/30/2017 Status: F Source: [place] 8:42 AM [facility] REPOSITORY TYPE CODE TESTS RESULT OUT OF [...] Performed By: #### L500.2500, L500.4100, L501.5200, L501.9520 ####[facility] [address] [place], [place], [id number] MAGNESIUM Collected: 10/30/2017 Status: F Source: [place] 8:42 AM [facility] REPOSITORY TYPE CODE TESTS RESULT OUT OF RANGE REFERENCE UNITS LAB L501.5200 Normal 1.8-2.4 mg/dL MG 2.1 Performed By: #### L500.2500, L500.4100, L501.5200, L501.9520 ####[facility] [address] [place], [place], [address] THYROID STIM HORMONE Collected: 10/30/2017 Status: F Source: [place] (TSH) 8:42 AM [facility] REPOSITORY TYPE CODE TESTS RESULT OUT OF RANGE REFERENCE UNITS LAB L501.9520 Normal 0.358-3.74 uIU/mL TSH 1.46 Performed By: #### L500.2500, L500.4100, L501.5200, L501.9520 ####[facility] [address] [facility] [address] [place], [place], [address] CBC W/DIFF, AUTOMATED Collected: 10/30/2017 Status: F Source: [place] 8:42 AM [facility] REPOSITORY TYPE CODE TESTS RESULT OUT OF [...] Absolute Lymph 2.13 Performed By: #### L100.0100 ####[facility] [address] [place], [place], [address] INTERNAL MEDICINE Observed: 10/29/2017 Status: F Source: [place] OFFICE VISIT 6:00 PM [facility] REPOSITORY [place] Internal [address] [place] [address] [place] [address] [phone] VISITDate of Service: 10/29/17MR#: [id number] Acct: [id number]: ALIN LEÓN Rep #: [id number]: 1985 Provider: Eugene Bills NPAge/Sex: 32/F Location: [facility].BIMStatus: SignedIntakeVital Signs10/29/17 Height 5 ft 6 in10/29/17 Weight: 131 lb10/29/17 Body Mass Index (BMI) 21.112 Blood Pressure 124/ Blood Pressure Location Rt brachialIntakeVisit Reasons: dizzy/no PCPChief Complaint: dizzinessIs patient in pain?: NoAllergiesNo Known Allergies Allergy (Verified 08/21/17 09:29)Medicationsfluticasone 50 mcg/actuation nasal spray,suspension 2 spray INTRANASAL QDAY #16 g 10/29/17 [RxConfirmed 10/29/17]PFSHMedical History ( Reviewed 10/29/17 @ 17:45 by NABIL Womack)Abdominal pain (Acute)Ovarian cyst (Acute)Surgical History History of [...] office [facility] She has no significant past medical history.The [...] average body habitus, well nourishedOrientation: alert, oriented v6Vsynelxjlxx: mental status not alteredHENMTHead: normal to inspectionEars: [...] plain loratadinewould suffice. Patient verbalized understanding.2. Dizziness B94EqzbAqldkspb for orthostatic hypotension on exam. Did however [...] her annual physical/well visit. She states she mhfg-gq-sjvr on the influenza vaccination.Donaldo disclaimerPlan DetailOther OrdersOrders:Other MedicationsNew:fluticasone 50 mcg/actuation (Flonase Allergy Relief) adminis2 sprays Intranasal QDAYter into each nostrilFollow Up1 month annual physicalCodingLevel of Care CodeOff vis,new,level 3DiagnosesChronic non- seasonal allergic rhinitis, unspecified trigger J30.89; J30.89Chronicity: chronicAllergic rhinitis trigger: unspecifiedAllergic rhinitis seasonality: non- seasonalDizziness R42Leg cramping R25.2Encounter for preventative adult health care examination Z00. 1800 <Electronically signed by Eugene GARIBAYC>Date Eugene GARIBAYCCosigner Signature: Date (if applicable)CC: PROGRESS Observed: 08/28/2017 Status: COMPLETED Source: [place] 10:16 AM [facility] REPOSITORY O ID: [id number]: Darling Ballard MaService: (none) Author Type: (none)Type: Progress NotesFiled: 08/28/2017 10:20 AMNote Text:31 year old female here for INACTIVATED INFLUENZA VACCINE.8591-2265 SeasonPatient is identified by name and date of : Yes [] CONTRAINDICATIONS colorenhanced sectionAge less than 6 months? NoAllergy to eggs, chicken, chicken feathers, or chicken dander? NoAllergy to thimerosal (a preservative) or formaldehyde? NoHistory of severe reaction to any vaccine component or a previous dose ofinfluenza vaccination? NoHistory of Guillain-[place] Bay Syndrome within 6 weeks after a previousinfluenza [...] information sheet given? YesSee immunization activity in [facility] for details of immunizationsadminstered today.Patient age: [age] year old For The 0183-8216 Flu Season 6-35 months old: Fluzone 0.25 [...] Ma CNNURSE Observed: 08/28/2017 Status: COMPLETED Source: [place] 10:00 AM [facility] REPOSITORY Nurse Visit (PEDSWS) ---------ALIN LEÓN ([id number]) 1985 FDate Time Provider Hjawvqrsue16/27/17 10:00 AM [facility] During your visit today, we recorded the following information about you:Darling Ballard Ma 08/28/2017 10:20 AM Ztgijh24 year old female here for INACTIVATED INFLUENZA VACCINE.6789-0581 SeasonPatient is identified by name and date of : Yes [] CONTRAINDICATIONS color enhancedsectionAge less than 6 months? NoAllergy to eggs, chicken, chicken feathers, or chicken dander? NoAllergy to thimerosal (a preservative) or formaldehyde? NoHistory of severe reaction to any vaccine component or a previous dose ofinfluenza vaccination? NoHistory of Guillain-[place] Bay Syndrome within 6 weeks after a previous [...] information sheet given? YesSee immunization activity in [facility] for details of immunizations adminsteredtoday.Patient age: [age] year old For The 5727-8840 Flu Season 6-35 months old: Fluzone 0.25 [...] receive a seconddose in one months time.Darling Ballard [facility] Provider: ADDIE DOWNEY [[id number]]Allergies As of Date: 2016(No Known Allergies)Date Reviewed: 12/07/2016Reviewed by: Morena Mahmood Event Producer - Fully AssessedReason for Visit: Imm/Inj [58] Cmt: Flu VaccinePrimary Visit Diagnosis:Need for vaccination [Z23 ]Order(s):INFLUENZA VACCINE QUADRIVALENT AGE 3 YRS PLUS + IM [[id number]] Order #: [id number] as of 08/28/2017 Sig: YIIXADGFBDBLY-OTFPFJPBTOJMJ-O* Take 1 Dose by mouth as direc* [...] B Streptococcus carrier), +RV cultur*INVALID FOR*08/17/2014Encounter Number: [id number] Status:Closed by DARLING BALLARD MA on 08/28/17 EMERGENCY DEPARTMENT Observed: 08/22/2017 Status: F Source: [place] SUMMARY 5:08 PM [facility] REPOSITORY [facility] [address] [place], [place] [address]Uaoxgptmc Department Cibfsps90/20/17 0956MR#: [id number] Acct: [id number]: ALIN LEÓN Rep #: [id number]: 1985 31 [...] nontenderCVS: Regular rate rhythm no murmurs normal S1-S6Vfzgrucupcw: No distress clear to auscultation bilaterally chest [...] Plan for ED Patient:Disposition: Home or Assisted LivingChief Complaint: Abd PainInstructions: ED Abdominal Pain Appendx PossReferrals:Care Physician,No Primary [Primary Care Provider] -Sharan Gibbs MD [STAFF PHYSICIAN] - 1 Day for another examWhat to do if you have ProblemsFor any increased pain, shortness of breath, bleeding, nausea or vomiting, chest pain, or anyunexpected problems, contact your Primary Care Provider. Call [facility] ([phone])or report to the closest Emergency Room.Call 911 if necessary. 1708 <Electronically signed by Juan Diego Hancock DO>Date Juan Diego Hancock DOCosigner Signature (If Indicated): Date CC: No Primary Care Physician CONSULTATION Observed: 08/21/2017 Status: F Source: [place] 6:58 PM [facility] REPOSITORY [facility] [address] [address]Bqppsbumxzsi90/20/17 1850MR#: [id number] Acct: [id number]: ALIN LEÓN Rep #: [id number]: 1985 31 From: Sharan [...] adenoidectomy as a childGYN History: No pertinent PELLETIZER historySmoking Status: Current every day smoker- *Family [...] with her surgical careSharan Gibbs M.D., F.A.C.S.08/21/17 3598 <Electronically signed by Sharan Gibbs MD>Date Sharan Gibbs MDCosigner Signature (if applicable): Date CC: Juan Diego Hancock DO; No Primary Care Physician Signed URINALYSIS, COMPLETE Collected: 08/21/2017 Status: F Source: [place] 10:20 AM [facility] REPOSITORY Order Comment: Order Date: 08/21/17How was [...] MUCUS, RARE URINE Performed By: #### L400.0001 ####[facility] [address] [place], [place], [phone] CBC W/DIFF, AUTOMATED Collected: 08/21/2017 Status: C Source: [place] 10:00 AM [facility] REPOSITORY TYPE CODE TESTS RESULT OUT OF [...] as: March neal Performed By: #### L100.0100 ####[facility] [address] [place], [address] COMPREHENSIVE METABOLIC Collected: 08/21/2017 Status: F Source: [facility] 10:00 AM [facility] REPOSITORY TYPE CODE TESTS RESULT OUT OF [...] GAP 8 Performed By: #### L500.4050, L501.2450 ####[facility] [address] [place], [place], [address] LIPASE Collected: 08/21/2017 Status: F Source: [place] 10:00 AM [facility] REPOSITORY TYPE CODE TESTS RESULT OUT OF RANGE REFERENCE UNITS LAB L501.2450 Normal 73-393 U/L LIPASE 98 Performed By: #### L500.4050, L501.2450 ####[facility] [address], [address] ,SERUM,HCG QUALI. Collected: Status: F Source: [place] 08/21/2017 10:00 AM [facility] REPOSITORY TYPE CODE TESTS RESULT OUT OF REFERENCE UNITS RANGE LAB L700.6700 Normal =>Qualitati mIU/mL HCG Qual < 1 ve triggr LAB L700.7000 Normal 0-9 Nonpreg Negative HCGSQUAL NEGATIVE Performed By: #### L700.6800 ####[facility] [address] [place], [address] ABDOMEN/PELVIS WITH Observed: 08/21/2017 Status: F Source: [place] CONTRAST 9:46 AM [facility] REPOSITORY [facility] [address] [place], [place] [address]Bnbagrj/Pelvis WITH ContrastMR#: [id number] Acct: [id number]: ALIN LEÓN Rep #: [id number]: 1985 F 31 From: Mendoza Schaffer DOPCP: Care Physician,No Primary Status: REG ERStudy: Abdomen/Pelvis WITH Contrast Date of Exam: 08/21/17Exam# [id number] Ordering Dr: Juan Diego Hancock DOSTUDY: CT [...] wall. L5-S1 degenerative disc disease. ORDER #: [id number] CT/Abdomen/ Pelvis WITH ContrastIMPRESSION:1. Possible acute uncomplicated appendicitis. Recommend clinicalcorrelation2. Possibly recently ruptured right ovarian follicle. Trace pelvic freefluidElectronically Signed:Mendoza Schaffer DO at 12:24 EDTTel , Service support , QL: Juan Diego Hancock DO; No Primary Care Physician [employer] Service Team Member:Signed ALLERGIES ALLERGIES DATE TYPE / CODE NAME / CODE REACTION SEVERITY SOURCE 08/21/2017 Drug No Known Unknown [facility] Allergy/416 Allergies/R41565 Hospital 870158(SNOM 0388(RXNORM) Repository ED CT) Drug/357009 No Known Zoroastrian 003(SNOMED Allergies [facility] CT) System Repository Drug NO KNOWN [facility] Class/16713 ALLERGIES [place] 1003(SNOMED Repository CT) ENCOUNTERS ENCOUNTERS ADMIT/DISCHARGE ACCOUNT ADMITTING ENCOUNTER LOCATION SOURCE NUMBER CLASS 06/15/2018 [id number] Ambulatory [facility] ing:PT Repository 06/04/2018/06/04/20 [id number] Ambulatory BMSBuilding:Osmar [place] [address] Repository 04/19/2018/04/19/20 [id number] Ambulatory BMSBuilding:B Bhupendra [address].[facility] Repository 04/09/2018/04/09/20 [id number] [place], Emergency [address] ing:[facility] EDRoom: WR Repository 04/09/2018/04/09/20 [id number] Emergency [address] ing:ED Repository 11/26/2017/11/26/19 [id number] Ambulatory BMSBuilding:B Bhupendra [address].[facility] Repository 10/30/2017/11/03/19 [id number] Ambulatory [address] Repository 10/30/2017 [id number] [facility] Rep[facility] 10/29/2017/10/29/20 [id number] Ambulatory BMSBuilding:B Bhupendra [address] [facility] Repository 08/28/2017/08/31/20 [id number] Ambulatory [address] Repository 08/21/2017/08/21/20 [id number] Emergency [address] ing:ED Repository PAYERS PAYERS ENCOUNTER GUARANTOR PAYER SUBSCRIBER SOURCE 06/15/2018 Kaye Huizar [id number] Insurance:ANTHEMPolic McintireDOB[facility] y Number: [id number] Medical Center [address]Fvs: [id number] Repository Date:2051-35-14[address] () [address], [place] [address]BG: 06/15/2018 Secondary NOT GIVENUNK Bhupendra Insurance:SELF PAY [facility] Number: Effective Repository Date:2018-06-08 06/04/2018 Kaye Huizar [id number] Insurance:ANTHEMPolic McintireDOB: [facility], y Number: [id number] Medical Center [address]Nht: [id number] Repository Date:3263-60-29[address] () [address], [place] [address]LP: 06/04/2018 Secondary NOT GIVENUNK Bhupendra Insurance:SELF PAY [facility] Number: Effective Repository Date:2018-06-04 04/19/2018 Kaye E Primary Kaye Cardona Bhupendra [id number] Insurance:ANTHEMPolic McintireDOB: Community [address]CI[address]SHRE[address], y Number: [id number] Medical Center [address]Ard: [id number] Repository Date:1221-85-05Js [address] () [address] [place] [address]CP: 04/19/2018 Secondary NOT GIVENUNK [place] Insurance:SELF PAY [facility] Number: Effective Repository Date:2018-04-19 04/09/2018 ALIN Toribio Primary Insurance[facility] ALIN Hauser MCINTIREDOB: DEMOCRAT LIABPbrook[facility] centery MCINTIREDOB: [facility] [id number] Number: Effective [id number] System [facility]CHPAL[facility], Date:2018-04-09 WOJCIE[address] Repository [place] 7821-[place]-36[place]dL[place], [place] [address]Agv: Name:CD:[id number]: [place], [place] () [address]QL: (256) () 000-0000 () 04/09/2018 Kaye E Primary Kaye Cardona Bhupendra [id number] Insurance:ANTHEMPolic McintireDOB: Community [address]CI[address]SH[address], y Number: [id number] Medical Center [address]Bei: [id number] Repository Date:7384-85-21Av [address] () [address], [place] [address]DE: 04/09/2018 Secondary NOT GIVENUNK [place] Insurance:SELF PAY [facility] Number: Effective Repository Date:2018-04-09 11/26/2017 Kaye E Primary Kaye Huizar [id number] Insurance:ANTHEMPolic McintireDOB: Community [address]SH[address], y Number: [id number] Medical Center [address]Lek: [id number] Repository Date:5442-02-06Hx [address] () [id number] [place] [address]GL: 11/26/2017 Secondary NOT GIVENUNK [place] Insurance:SELF PAY [facility] Number: Effective Repository Date:2017-10-29 10/30/2017 Kaye E Primary Kaye Cardona [place] [id number] Insurance:ANTHEMPolic McintireDOB: Community [address]CI[address] RDSH[address], y Number: [id number] Medical Center [address]Rxj: [id number] Repository Date:6340-06-28Cz [address] () [address]Puzpvkz [place] [address]JM: 10/30/2017 Secondary NOT GIVENUNK Bhupendra Insurance:SELF PAY [facility] Number: Effective Repository Date:2017-10-30 10/29/2017 Kaye E Primary Kaye Cardona [place] [id number] Insurance:ANTHEMPolic McintireDOB: Community [address]SH[address], y Number: [id number] Medical Center [address]Ppc: [id number] Repository Date:4375-20-47Yz [address] () [address]Bkrtwwq, [place] [address]YE: 10/29/2017 Secondary NOT GIVENUNK [place] Insurance:SELF PAY [facility] Number: Effective Repository Date:2017-10-29 08/21/2017 Kaye E Primary Kaye Cardona [place] [id number] Insurance:ANTHEMPolic McintireDOB: Community [address]SH[address], y Number: [id number] Medical Center [address]Rxi: [id number] Repository Date:5910-89-73Ho [address] () [id number] [place] [address]PY: 08/21/2017 Secondary NOT GIVENUNK Bhupendra Insurance:SELF PAY [facility] Number: Effective Repository Date:2017-08-21
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
--- NOTE | 2018-11-10 17:50 | HP.PTDCNRP_ITS ---
HP - Discharge Summary (1) - Patient Information ALIN LEÓN was seen in my office for initial evaluation on 06/15/18. The following Plan of Care was established for this patient: Initial Frequency: 2x /Week Initial Duration: 4 Weeks - Anticipated Interventions Patient/Client Instruction: Educate patient on: Condition, Plan of Care For the Purpose of:: To decrease pain, To decrease swelling/inflammation, To i ncrease ROM, To improve nutrient delivery to tissue, To improve muscle performance and motor function, To improve ability to perform ADL's, To increase tolerance to activity/condition/position, To improve performance and independence with ADL's, To improve ability of physical actions for home/community/work/leisure, To improve health of tissue Therapeutic Exercise to Include: Strength training, Body mechanics, Postural training, Neuromotor development, Passive ROM, Active ROM, Dynamic Lumbar Stabilization, Maritza Exercises, Scapular Strength/Stabilization For the Purpose of:: To decrease pain, To increase ROM, To improve nutrient delivery to tissue, To increase oxygenation perfusion, To improve muscle performance and motor function, To improve ability to perform ADL's, To increase tolerance to activity/condition/position, To improve ability of physical actions for home/community/work/leisure, To improve health of tissue, To increase f lexibility/ROM Manual Therapy Techniques to Include: Functional dry needling, Soft tissue mobilization For the Purpose of:: To decrease pain, To increase ROM, To improve nutrient delivery to tissue, To improve muscle performance and motor function, To improve ability to perform ADL's, To increase tolerance to activity/condition/position IF ES: Yes Cryotherapy (ice pack, ice massage): Yes Thermo therapy (hot pack): Yes Ultrasound (thermal/non thermal): Yes For the Purpose of:: To decrease pain, To decrease swelling/inflammation, To increase ROM, To improve nutrient delivery to tissue, To improve muscle performance and motor function This patient was last seen in our office 07/20/18. Pertinent comments regarding their Physical therapy will appear below: Pt did not reschedule additional visits and will be discharged at this time. At this point I will be discontinuing this patient from physical therapy. I would be happy to see this patient again in the future if found appropriate by the physician. Thank you! Maren Pablo, MPT
== END 2018-07-20 19:00 | disposition home or self-care (01) ==
LOC: PT 09:30
PROVIDERS: Family Provider Internal Medicine; PCP Internal Medicine; Visit Provider Nurse Practitioner Family
DX: M54.6 Pain in thoracic spine (principal)
CPT/HCPCS: 97110; 97161; 97530

== ENCOUNTER → 2018-09-24 15:22 | Outpatient (CLI) | payer BC, SELFPAY ==
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
--- NOTE | 2018-09-24 15:37 | MRI_ITS ---
STUDY: MRI LUMBAR SPINE WITHOUT CONTRAST REASON FOR EXAM: Female, 33 years old. Posttraumatic chronic back pain TECHNIQUE: Standardized fat and water weighted pulse sequences were obtained in the sagittal and axial planes. COMPARISON: None FINDINGS: T12-L1: Normal endplates. Normal disc height, hydration and morphology. Normal bilateral facet joints. Normal central canal and bilateral lateral recesses. Normal bilateral intervertebral neural foramina. Normal lumbar lordosis. There is no substantial scoliosis. Normal conus medullaris that terminates at T12-L1 L1-2: Normal endplates. Normal disc height, hydration and morphology. Normal bilateral facet joints. Normal central canal and bilateral lateral recesses. Normal bilateral intervertebral neural foramina. L2-3: Normal endplates. Normal disc height, hydration and morphology. Normal bilateral facet joints. Normal central canal and bilateral lateral recesses. Normal bilateral intervertebral neural foramina. L3-4: Normal endplates. Normal disc height, hydration and minor annular bulge with small central disc protrusion. Normal bilateral facet joints. Normal central canal and bilateral lateral recesses. Normal bilateral intervertebral neural foramina. L4-5: Normal endplates. Normal disc height, desiccation and minor annular bulge.. Facet arthropathy and minor thickening of ligamenta flava.. Normal central canal. Normal bilateral recesses Mild bilateral neural foramina encroachment. L5-S1: Degenerative endplate changes.. Normal disc height, desiccation and minor annular bulge with small central disc extrusion with inferior migration of disc fragment. Bilateral facet arthropathy.. Mild narrowing of the central canal bilateral recesses and neural foramina. Normal visualized sacral ala. Normal visualized paraspinous soft tissue structures. MRI/Spine Lumbar (Routine) IMPRESSION: Mild spinal stenosis at L4-5 and L5-S1 secondary to degenerative disc disease and bony hypertrophy. Small central disc protrusion at L3-4 without spinal stenosis. Electronically Signed: Maged Campos MD at 21:40 EST , Service support ,
== END ==
PROVIDERS: Family Provider Internal Medicine; PCP Internal Medicine; Referring Provider Anesthesiology Pain Medicine; Visit Provider Anesthesiology Pain Medicine
DX: M51.37 Other intervertebral disc degeneration, lumbosacral region (principal); M48.061 Spinal stenosis, lumbar region without neurogenic claudication
CPT/HCPCS: 72146; 72148

== ENCOUNTER → 2019-08-29 | Outpatient (CLI) | payer BC, SELFPAY ==
[2019-08-29 09:49] VITALS: BMI 21.4
[2019-08-29 12:21] LABS: Absolute Lymphocyte Count 1.97 X10^3/uL (0.83-4.51); Absolute Neutrophil Count 4.6 X10^3/uL (2.0-7.7); Basophil# 0.11 X10^3/uL; Basophil% 1.4 % (0-1); Eosinophil# 0.23 X10^3/uL; Hematocrit 42.5 % (37-47); Lymphocyte # 1.97 X10^3/ul (4.0); Lymphocyte % 25.4 % (19-41); Mean Corp Hgb Conc 32.9 g/dL (32-36); Mean Corpuscular Hgb 30.2 pg (27.0-32.0); Mean Corpuscular Volume 91.6 fL (81-99); Mean Platelet Vol. 10.1 fl (6.2-12.0); Monocyte% 10.3 % (0-10); NRBC Flagged by Analyzer 0 % (0-5); Neutrophil # 4.63 X10^3/uL (2.7-7.7); Neutrophil % 59.6 % (47-70); Platelet Count 348 K/mm3 (150-450); RBC Distribution Width CV 12.7 % (11.6-14.6); RBC Distribution Width SD 42.8 fl (35.1-43.9); Red Blood Count 4.64 M/mm3 (4.2-5.4); White Blood Count 7.8 K/mm3 (4.4-11.0)
[2019-08-29 12:41] LABS: BUN 8 mg/dL (7-18); Creatinine, Serum 0.91 mg/dL (0.55-1.02); EST Glomerular Filtration Rate 76 mL/min (>60); Est Glom Filt Rate - Afr Amer 92 mL/min (>60); Glucose 79 mg/dL (74-106)
[2019-08-29 12:42] LABS: ALB/GLOB Ratio 0.9 RATIO (0.9-2.4); AST(SGOT) 11 U/L (15-37); Alanine Aminotransfer ALT/SGPT 16 U/L (13-56); Albumin, Serum 3.7 g/dL (3.2-5.0); Alkaline Phosphatase 78 U/L (45-117); Anion Gap 8 (5-15); BUN/Creat Ratio 8.8 RATIO (10-20); Calcium,Total 8.6 mg/dL (8.5-10.1); Chloride 105 mmol/L (98-107); Globulin 4.1 g/dL (2.2-4.2); Potassium 4.1 mmol/L (3.5-5.1); Protein, Total 7.8 g/dL (6.4-8.2); Sodium Level 138 mmol/L (136-145); T4 Free Direct 1.02 ng/dL (0.76-1.46); Thyroid Stim Hormone (TSH) 2.27 uIU/mL (0.358-3.74)
== END | disposition home or self-care (01) ==
LOC: BIMLAB 10:03
PROVIDERS: Family Provider Pediatrics; PCP Internal Medicine; Visit Provider Internal Medicine
DX: F41.9 Anxiety disorder, unspecified (principal)
CPT/HCPCS: 36415; 80053; 84439; 84443; 85025

== ENCOUNTER 2020-08-05 15:34 | Emergency (ER) | payer BC, SELFPAY ==
[2019-12-26 09:39] VITALS: BMI 21.6
[2020-08-05 15:35] VITALS: BP 138/65; PULSE 102; RESP 16; TEMP 36.4; O2SAT 99; BMI 23.2
--- NOTE | 2020-08-05 15:48 | CT_ITS ---
STUDY: CT BRAIN WITHOUT CONTRAST REASON FOR EXAM: Female, 34 years old. Headache for 4 days RADIATION DOSAGE (If Supplied By Facility): CTDIvol = ( 44.99 ) mGy, DLP = ( 779.24 ) mGycm TECHNIQUE: Transaxial CT imaging of the brain was performed without administration of intravenous contrast material. Individualized dose optimization techniques were used for this CT. COMPARISON: No relevant priors. FINDINGS: Brain parenchyma is without focal lesions, mass effect, acute intracranial hemorrhage, extra parenchymal fluid collections, hydrocephalus or herniation. The skull is intact. CT/Brain/Head without Contrast IMPRESSION: 1. Normal CT brain. Electronically Signed: Emma Cole, at 16:31 EDT Tel , Service support ,
--- NOTE | 2020-08-05 15:49 | ED.DCSUM_ITS ---
History of Present Illness Chief Complaint: Headache Narrative: Patient presents with gradual onset of headache for the past 4 days although she has had these headaches for the past 4 weeks, they are gradual onset they are throbbing headaches there is not significant photophobia or phonophobia. She has no fevers or chills she has no neck pain or stiffness. She has no nausea or vomiting associated with this. She does have an appointment with a neurologist in 2 weeks. She has not seen a physician for these headaches. Past Medical History - Allergies and Home Meds Allergies/Adverse Reactions: Allergies No Known Allergies Allergy (Verified 09/26/19 09:27) Primary Care Physician: Ninoska King MD [Primary Care Provider] - Past Medical History: None Surgical History: - - PE tubes and tonsillectomy and adenoidectomy as a child Smoking Status: Current every day smoker - Family History Offspring Family History: Family History (Last Reviewed 12/26/19 @ 09:38 by Yulia Vargas) Mother Diabetes Cancer Father Hypertension Hyperlipemia Anxiety and depression Brother celiac Grandmother Cancer Diabetes Family History: Reports: Unknown Review of Systems All systems negative except as indicated General: Denies: Fever Eyes: Denies: Visual changes - bilaterally ENT: Denies: Rhinorrhea, Sore throat Cardiovascular: Denies: Chest pain, Palpitations Respiratory: Denies: Dyspnea, Cough Gastrointestinal: Denies: Abdominal pain, Nausea, Vomiting Genitourinary: Denies: Dysuria Musculoskeletal: Denies: Myalgias, Neck pain Skin: Denies: Rash Neurological: Reports: Headache. Denies: Weakness, Parasthesia, Numbness Psych: Denies: Depression Endocrine: Denies: Polyuria Hematologic: Denies: Easy bruising Physical Exam Vital Signs/Narrative: Vital Signs Temp Pulse Resp BP Pulse Ox 08/05/20 15:35 97.6 F L 102 H 16 138/65 H 99 General: Well nourished, Well developed, - - She is relatively comfortable sitting next to her and chatting is on walking into the room Head: Normocephalic, Atraumatic Eyes: Perrl, EOMI ENT: Moist mucous membranes, No rhinorrhea Neck: Supple Cardiovascular: Regular rate, Regular rhythm Respiratory: No distress, CTA bilaterally Abdomen: Soft, Nontender Back: Nontender, Normal Inspection. Negative for: CVA tenderness Extremities: Nontender, No edema Skin: Normal color Neurological: Alert, Normal Strength, Normal Sensation, Normal Gait. Negative for: Weakness Diagnostic/Tx/Re-eval - Medical Decision Making Patient's headache significantly improved with headache cocktail. CT was unremarkable she had a gradual onset of headache with normal neurological exam no further testing is needed I reassured her I will discharge her with follow-up from neurology. ED Disposition - Plan for ED Patient: Disposition: Home or Assisted Living Diagnosis: Headache Instructions: ED Headache Unspecified Prescriptions: Sumatriptan Succinate [Imitrex] 25 mg PO .X1 PRN #5 tab Transmission Status: Pending to [id number] Referrals: Ninoska King MD [Primary Care Provider] -
[2020-08-05] MEDS: 0.9% Normal Saline 1,000 ML 999 ML IV (15:58)
[2020-08-05] MEDS: Ketorolac 15 MG/ML Vial IV (15:58)
[2020-08-05] MEDS: DiphenhydrAMINE 50 MG/ML Syringe 25 MG IV (15:58)
[2020-08-05] MEDS: Metoclopramide 10 MG/2 ML Vial IV (15:58)
[2020-08-05] MEDS: dexAMETHasone 10 MG/ML Vial IV (17:26)
== END 2020-08-05 17:31 | disposition home or self-care (01) ==
PROVIDERS: Emergency Provider Emergency Medicine; PCP Internal Medicine
DX: R51.9 Headache, unspecified (principal); F17.200 Nicotine dependence, unspecified, uncomplicated
CPT/HCPCS: 70450; 96374; 96375; 99282; J7030

== ENCOUNTER → 2020-08-09 10:01 | Outpatient (CLI) | payer BC, SELFPAY ==
[2020-08-09 09:32] VITALS: BMI 23.2
[2020-08-09 12:52] LABS: Absolute Lymphocyte Count 2.85 X10^3/uL (0.83-4.51); Absolute Neutrophil Count 4.5 X10^3/uL (2.0-7.7); Basophil% 1.2 % (0-1); Eosinophil# 0.27 X10^3/uL; Eosinophils% 3.2 % (0-5); Hematocrit 43.8 % (37-47); Lymphocyte # 2.85 X10^3/ul (4.0); Lymphocyte % 34.2 % (19-41); Mean Corpuscular Volume 90.7 fL (81-99); Mean Platelet Vol. 9.8 fl (6.2-12.0); Monocyte# 0.61 X10^3/uL; Monocyte% 7.3 % (0-10); NRBC Flagged by Analyzer 0 % (0-5); Neutrophil # 4.48 X10^3/uL (2.7-7.7); Neutrophil % 53.9 % (47-70); Platelet Count 479 K/mm3 (150-450); RBC Distribution Width CV 12.7 % (11.6-14.6); RBC Distribution Width SD 42.2 fl (35.1-43.9); Red Blood Count 4.83 M/mm3 (4.2-5.4); White Blood Count 8.3 K/mm3 (4.4-11.0)
[2020-08-09 13:22] LABS: ALB/GLOB Ratio 0.9 RATIO (0.9-2.4); AST(SGOT) 14 U/L (15-37); Alanine Aminotransfer ALT/SGPT 20 U/L (13-56); Albumin, Serum 3.7 g/dL (3.2-5.0); Alkaline Phosphatase 91 U/L (45-117); Anion Gap 4 (5-15); BUN 10 mg/dL (7-18); BUN/Creat Ratio 10.1 RATIO (10-20); Chloride 101 mmol/L (98-107); Cholesterol 196 mg/dL (200); Creatinine, Serum 0.99 mg/dL (0.55-1.02); EST Glomerular Filtration Rate 69 mL/min (>60); Est Glom Filt Rate - Afr Amer 83 mL/min (>60); Globulin 4.2 g/dL (2.2-4.2); Glucose 82 mg/dL (74-106); High Density Lipoprotein 88 mg/dL; Magnesium 2.3 mg/dL (1.6-2.6); Potassium 4.3 mmol/L (3.5-5.1); Protein, Total 7.9 g/dL (6.4-8.2); Sodium Level 135 mmol/L (136-145); Thyroid Stim Hormone (TSH) 1.85 uIU/mL (0.358-3.74); Triglycerides 166 mg/dL; Very Low Density Lipoprotein 33 mg/dL (5-40)
== END ==
PROVIDERS: PCP Internal Medicine; Referring Provider Nurse Practitioner Family; Visit Provider Nurse Practitioner Family
DX: Z00.00 Encounter for general adult medical examination without abnormal findings (principal); J30.9 Allergic rhinitis, unspecified; R51.9 Headache, unspecified
CPT/HCPCS: 36415; 80053; 80061; 83735; 84443; 85025

== ENCOUNTER 2020-11-14 07:06 | Observation (INO) | payer OTHER, SELFPAY ==
[2020-11-12 09:20] VITALS: BMI 23.2
[2020-11-14] VITALS (12 sets, daily range): BP systolic 101–116; BP diastolic 53–74; PULSE 69–93; RESP 16–18; TEMP 36.2–37; O2SAT 97–100; BMI 24.8
--- NOTE | 2020-11-14 | APP_PTH ---
PATIENT: ALIN LEÓN LOC: MS3 U#:[id number] AGE/SX: 35/F ROOM: [id number] RE11/14/[address]: Dr. Sharan Gibbs MD : [id number] BED: 1 DIS: 11/14/2020 SPEC #: [id number] RECD: 11/14/20 13:19 STATUS: [place] VÁSQUEZ #: [id number] KINA: 11/14/20 00:[address]: Sharan Gibbs DEPT: SURGICAL PATHOLOGY RECD BY: Saumya Lane ENTERED: 11/15/20 06:53 SP TYPE: APPENDIX OTHR DR: Dr. Ninoska King MD Tissues: Appendix, NOS Procedures: Surgery Specimen Level III HEADER OPERATION: Laparoscopic appendectomy PRE-OP DIAGNOSIS: Acute appendicitis TISSUE SUBMITTED: Appendix MICROSCOPIC DIAGNOSIS Appendix, appendectomy: Acute appendicitis and periappendicitis. KERMIT:[facility] 11/16/2020 MICROSCOPIC DESCRIPTION Slides are reviewed. GROSS DESCRIPTION Received in fixative is one container labeled with the patient's name and designated appendix. The specimen consists of an appendix with attached periappendiceal adipose tissue. The appendix measures 7 cm in length and up to 1 cm in diameter. The attached periappendiceal adipose tissue measures up to 2 cm in width. No obvious perforation is identified. The lumen is pinpoint. The mucosa is focally congested and hemorrhagic. No fecalith is identified. Clinic Supervisor sections are submitted in one cassette. / KERMIT:[facility] 11/15/20 TC:2 CPT: 56404
--- NOTE | 2020-11-14 07:26 | ED.DCSUM_ITS ---
- ER Visit Summary Date of Service: 11/14/20 Chief Complaint: Abdominal pain History of Present Illness: The patient is a 35 F and depression migraine headaches. He states around 9 PM last evening she had onset of abdominal pain. Is been constant since midnight. She had mild nausea associated with it no vomiting. No diarrhea nor constipation. No melena. No dysuria. No vaginal bleeding or discharge. Her last normal menstrual period was 2 to 3 weeks ago. She had similar pain to this about 3 years ago at that time was worked up and had a CAT scan basically unremarkable and a felt was secondary to an ovarian cyst. She denies any weight loss. She denies any fever. There has been no abdominal trauma. Physical Examination: Young female no acute distress vital signs stable afebrile. HEENT exam unremarkable. Neck nontender no lymphadenopathy. Lungs clear to auscultation bilaterally. Heart regular rhythm no murmur. Abdomen soft. Nondistended. Normal bowel sounds no peritoneal signs. Mild right-sided tenderness. No rebound, guarding or rigidity. No hernia or masses. No distention. There is only mild tenderness in the right lower quadrant. There is no Ellington sign. There is no abdominal signs of trauma. She is moving all 4 extremities. There is no edema. Back is nontender. Neurologically she is awake and alert with no focal motor deficits. Test Results: CBC shows an elevated white blood cell count of 19,300. Hemoglobin 14. No bands. Chemistries are unremarkable. Liver enzymes are unremarkable. Lipase is normal. UA negative. Serum test negative. CAT scan of the abdomen pelvis was obtained with IV contrast shows acute appendicitis. This was read by the radiologist who called me the results and reviewed by me. I discussed all test results with the patient. Repeat exam at 8:26 AM patient is doing well. She still has abdominal discomfort. Her to give her some Toradol for pain. Given that she has a high white count and right-sided abdominal pain I am and obtain a CAT scan. My clinical suspicion for appendicitis is still low but it is a possibility given the area of her pain and the leukocytosis. Emergency Department Course and Treatment: 35-year-old female with abdominal pain. Clinically exam is pretty benign. We will start with labs. If there is any significant abnormality in the labs or change in her exam we may further consider imaging. She did not want anything for nausea or pain at this time. Treatment Plan: After the CAT scan results I called the general surgeon on-call Dr. Sharan Gbibs will be down to evaluate the patient. Patient will be Covid tested for preop and will be started on IV antibiotics Zosyn. Disposition: Discharge Impression: Acute abdominal pain secondary to acute appendicitis This note was generated with [employer] dictation software. It may contain incorrect words, spelling, and punctuation that were not noted in review of the chart prio r to signing ED Disposition - Plan for ED Patient: Referrals: Ninoska King MD [Primary Care Provider] -
[2020-11-14 07:50] LABS: Absolute Lymphocyte Count 1.74 X10^3/uL (0.83-4.51); Absolute Neutrophil Count 16.4 X10^3/uL (2.0-7.7); Basophil# 0.09 X10^3/uL; Basophil% 0.5 % (0-1); Eosinophil# 0.04 X10^3/uL; Eosinophils% 0.2 % (0-5); Hematocrit 43.9 % (37-47); Hemoglobin 14.2 g/dL (12.0-15.0); Lymphocyte # 1.74 X10^3/ul (4.0); Mean Corp Hgb Conc 32.3 g/dL (32-36); Mean Corpuscular Hgb 28.7 pg (27.0-32.0); Mean Corpuscular Volume 88.9 fL (81-99); Mean Platelet Vol. 9.3 fl (6.2-12.0); Monocyte# 0.94 X10^3/uL; Monocyte% 4.9 % (0-10); NRBC Flagged by Analyzer 0 % (0-5); Neutrophil % 84.7 % (47-70); Platelet Count 412 K/mm3 (150-450); RBC Distribution Width CV 13.3 % (11.6-14.6); RBC Distribution Width SD 43.7 fl (35.1-43.9); Red Blood Count 4.94 M/mm3 (4.2-5.4); White Blood Count 19.3 K/mm3 (4.4-11.0)
[2020-11-14 07:53] LABS: Color, Urine Yellow (Yellow); Glucose, Dipstick Normal (Normal); Ketone-Dipstick Negative (Negative); Leukocyte Esterase-Dipstick 25 /ul (Negative); Nitrite-Dipstick Negative (Negative); Occult Blood-Urine 50 /ul (Negative); Protein-Dipstick 15 mg/dl (Negative); Specific Gravity, Urine 1.015 (1.002-1.030); Urine Bilirubin Dipstick Negative (Negative); Urine Clarity Sl. Cloudy (Clear); Urine Urobilinogen Normal (Normal); Urine pH 6.5 (5.0 - 8.0)
[2020-11-14 08:03] LABS: Bacteria 1+ /hpf (None Seen); Mucous, Urine 2+ /hpf (<or=2+); Red Blood Cells-Urine 0-5 SEEN /hpf (0-5); Squamous Epithelial Cells - UA 0-5 SEEN /hpf (5-10); White Blood Cells 0-5 SEEN /hpf (0-5)
[2020-11-14 08:05] LABS: ALB/GLOB Ratio 0.8 RATIO (0.9-2.4); AST(SGOT) 11 U/L (15-37); Alanine Aminotransfer ALT/SGPT 17 U/L (13-56); Albumin, Serum 3.5 g/dL (3.2-5.0); Alkaline Phosphatase 96 U/L (45-117); Anion Gap 9 (5-15); BUN 10 mg/dL (7-18); BUN/Creat Ratio 9.4 RATIO (10-20); Calcium,Total 8.7 mg/dL (8.5-10.1); Chloride 101 mmol/L (98-107); Creatinine, Serum 1.06 mg/dL (0.55-1.02); EST Glomerular Filtration Rate 63 mL/min (>60); Est Glom Filt Rate - Afr Amer 76 mL/min (>60); Estimated Creatinine Clearance 70.01 ml/min; Globulin 4.4 g/dL (2.2-4.2); Glucose 107 mg/dL (74-106); Lipase 88 U/L (73-393); Potassium 3.8 mmol/L (3.5-5.1); Protein, Total 7.9 g/dL (6.4-8.2); Sodium Level 135 mmol/L (136-145)
[2020-11-14 08:26] LABS: Internal QC Validated? YES +Cl - CLEAR BKGD; Pregnancy, Serum, hCG Quali. NEGATIVE Negative
--- NOTE | 2020-11-14 08:28 | CT_ITS ---
STUDY: CT ABDOMEN AND PELVIS WITH CONTRAST REASON FOR EXAM: Female, 35 years old. RIGHT SIDE ABD PAIN/NAUSEA/ELEVATED WBC RADIATION DOSAGE (If Supplied By Facility): CTDIvol = ( 15.35 ) mGy, DLP = ( 735.11 ) mGycm TECHNIQUE: Transaxial images were obtained from the dome of the diaphragm to the symphysis pubis without oral contrast. 100CC ISOVUE 370 was administered. Sagittal and coronal images were reconstructed. Individualized dose optimization techniques were used for this CT. COMPARISON: None. FINDINGS: The visualized lung bases are unremarkable. The visualized portions of the heart are within normal limits. Normal liver. Normal gallbladder and extrahepatic biliary system. Normal spleen. Normal pancreas. Normal bilateral adrenal glands. Normal right kidney. Normal left kidney. Normal visualized stomach. Normal small intestine. Normal colon. There is a tubular, thick-walled appendix (>7mm), consistent with acute appendicitis. Normal abdominal aorta. Normal inferior vena cava. Normal retroperitoneum. Normal urinary bladder. Normal abdominal wall. Disc space narrowing and degeneration at the L5-S1 level. CT/Abdomen/Pelvis W IV Cont ONLY IMPRESSION: Findings consistent with a noncomplicated acute appendicitis. N.B. : The above information has been verbally conveyed by Jozef Bentley to Maged Orosco MD, on 11/14/2020 08:54:44 (ET). Electronically Signed: Jozef Bentley, at 8:56 EST , Service support ,
[2020-11-14] MEDS: Ketorolac 30 MG/ML Syringe IV (08:33)
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
--- NOTE | 2020-11-14 09:33 | DCINST_ITS ---
Discharge Diet: Light diet - advance as tolerated - if you have questions about your diet instructions, please talk to you doctor. Discharge Activity: May Not Drive - for 3-5 days or while taking narcotic pain medicine. May shower in (days): 1 Lifting Restrictions: 10 pounds Call your doctor if your incision/area has: Continuous Slow Oozing, Sudden Increased Bleeding, Increased Pain/ Swelling, Increased Redness, Foul Smelling Discharge Call your doctor if you observe: Fever of 101 or Higher Suture Line Care: Avoid Pulling/Pushing, Avoid Pinching/Bending Additional Dressing/Incision Instructions:: Change or remove dressing in 4 days. Leave steri-strips in place for 1 week. Allergies/Adverse Reactions: Allergies No Known Allergies Allergy (Verified 11/14/20 07:07) Medications to take at Discharge loratadine 10 mg tablet 10 mg PO QHS 04/19/18 desogestrel 0.15 mg-ethinyl estradiol 0.03 mg tablet 1 tab PO DAILY 08/29/19 Sumatriptan Succinate [Imitrex] 25 mg PO .X1 PRN #5 tab 08/05/20 escitalopram oxalate 10 mg tablet 10 mg PO DAILY #90 tab 08/09/20 montelukast 10 mg tablet 10 mg PO QHS #90 tab 08/09/20 Amitriptyline HCl 10 mg PO QHS 11/14/20 Primary Care Physician: Ninoska King MD [Primary Care Provider] - Test Results: Test results from this visit will be discussed in further detail at your follow- up appointment, if applicable. Please Follow Up With: Sharan Gibbs MD - [phone] When: Call for appt. May be phone, virtual, or on-site approx. 7-10 days
--- NOTE | 2020-11-14 09:46 | NURSING ---
SURGERY THEN MED SURG OBS R CEBUL APPENDICITIS
[2020-11-14] MEDS: Bupivacaine Mpf 0.5% 30 ML VIAL (11:35)
--- NOTE | 2020-11-14 11:42 | PCM.OPRPT ---
Problem List (1) Acute appendicitis Status: Acute Qualifiers: Acute appendicitis type: unspecified acute appendicitis type Qualified Code(s): K35.80 - Unspecified acute appendicitis Report of Operation Date of Procedure: 11/14/20 Pre-Operative Diagnosis: Acute appendicitis Post-Operative Diagnosis: Acute appendicitis Surgery/Procedure Performed:: Laparoscopic appendectomy Description of Surgical Findings:: Timeout informed consent was obtained. 35-year-old female was taken to the operating place upon the table underwent general endotracheal intubation anesthesia. Zosyn has been given therapeutically in the emergency room. The abdomen was sterilely prepped and draped. 0.5% Marcaine was used as a local anesthetic. Throughout the procedure total 30 cc was used. Skin sites were preanesthetized. A vertical infraumbilical incision was created holding sutures of 0 Vicryl placed varies needle inserted saline drop test performed. The abdomen was insufflated with CO2 to a pressure of 10 mmHg pressure. 10 mm trocar was inserted. 10 mm laparoscope inserted. No concern trocar injuries. 5 mm trochars were placed suprapubically in the low mid abdomen. Tubes and ovaries grossly appeared to be normal. There is no purulent fluid. The gallbladder was distended but otherwise appeared normal. The appendix appeared to be somewhat retrocecal behind the terminal ileum. There did appear to be some inflammation in the mid appendix. A window was made in the mesoappendix flush with the cecum. A standard height 45 mm stapler was used to transect the appendix at that location. Then a vascular height stapler was used to transect the mesoappendix. 2 hemolock clips were used on the mesoappendix to further assure hemostasis. A 4 x 4 gauze was used to dab and assure hemostasis. Fibular was placed as well at the cecum appendiceal mesentery. The appendix was placed in a retrieval bag. Hemostasis was intact. The abdomen was allowed to deflate of the CO2 through an antiviral valve. The appendix was removed. The fascia was closed with interrupted 0 Vicryl [id number] suture. Skin edges approximated opted for Monocryl subdermal stitches. Steri-Strips Telfa OpSite dressings applied. Sponge and instrument and needle counts were reported to the surgeon to be correct. Specimen appendix. Blood loss minimal. Drains none. Sharan Gibbs M.D., F.A.C.S. Type of Anesthesia:: General Anesthesiologist: Brett Allen
[2020-11-14] MEDS: Lactated Ringers 1,000 ML 70 ML IV (13:12)
[2020-11-14] MEDS: CLARIFY ORDER NOTE (13:23)
[2020-11-14] MEDS: Acetaminophen 325 MG Tablet 650 MG PO (14:02)
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
== END 2020-11-14 18:48 | disposition home or self-care (01) ==
LOC: ED 09:01 → ACINP 10:02 → MS3 13:39
PROVIDERS: Admitting Provider Surgery; Emergency Provider Emergency Medicine; PCP Internal Medicine; Visit Provider Surgery
PROC: 0DTJ4ZZ Resection of Appendix, Percutaneous Endoscopic Approach (ICD-10-PCS; CPT 44970; principal; 2020-11-14 15:45)
DX: K35.80 Unspecified acute appendicitis (principal); G43.909 Migraine, unspecified, not intractable, without status migrainosus; Z79.899 Other long term (current) drug therapy; F32.9 Major depressive disorder, single episode, unspecified; F41.9 Anxiety disorder, unspecified
CPT/HCPCS: 00840; 44970; 74177; 80053; 81001; 83690; 84703; 85025; 87426; 88304; 96374; 99218; 99285; J7120; Q9967; A4216; G0378

== ENCOUNTER 2021-11-08 11:16 | Outpatient (CLI) | payer BC, SELFPAY ==
[2021-11-08 12:43] LABS: Absolute Lymphocyte Count 2.71 X10^3/uL (0.83-4.51); Absolute Neutrophil Count 3.5 X10^3/uL (2.0-7.7); Basophil# 0.11 X10^3/uL; Basophil% 1.5 % (0-1); Eosinophil# 0.18 X10^3/uL; Eosinophils% 2.5 % (0-5); Hematocrit 44.8 % (37-47); Hemoglobin 14.9 g/dL (12.0-15.0); Lymphocyte # 2.71 X10^3/ul (0.83-4.51); Lymphocyte % 37.4 % (19-41); Mean Corp Hgb Conc 33.3 g/dL (32-36); Mean Corpuscular Hgb 29.9 pg (27.0-32.0); Mean Platelet Vol. 9.9 fl (6.2-12.0); Monocyte# 0.72 X10^3/uL; Monocyte% 9.9 % (0-10); NRBC Flagged by Analyzer 0 % (0-5); Neutrophil # 3.51 X10^3/uL (2.7-7.7); Neutrophil % 48.6 % (47-70); Platelet Count 452 K/mm3 (150-450); RBC Distribution Width CV 13.1 % (11.6-14.6); RBC Distribution Width SD 42.7 fl (35.1-43.9); Red Blood Count 4.98 M/mm3 (4.2-5.4); White Blood Count 7.2 K/mm3 (4.4-11.0)
[2021-11-08 13:26] LABS: ALB/GLOB Ratio 0.9 RATIO (0.9-2.4); AST(SGOT) 21 U/L (15-37); Alanine Aminotransfer ALT/SGPT 32 U/L (13-56); Albumin, Serum 3.8 g/dL (3.2-5.0); Alkaline Phosphatase 94 U/L (45-117); Anion Gap 8 (5-15); BUN 6 mg/dL (7-18); BUN/Creat Ratio 6.6 RATIO (10-20); Calcium,Total 9.2 mg/dL (8.5-10.1); Chloride 106 mmol/L (98-107); Creatinine, Serum 0.91 mg/dL (0.55-1.02); EST Glomerular Filtration Rate 75 mL/min (>60); Est Glom Filt Rate - Afr Amer 90 mL/min (>60); Globulin 4.3 g/dL (2.2-4.2); Glucose 93 mg/dL (74-106); Potassium 3.6 mmol/L (3.5-5.1); Protein, Total 8.1 g/dL (6.4-8.2); Sodium Level 140 mmol/L (136-145); T4 Free Direct 0.97 ng/dL (0.76-1.46); Thyroid Stim Hormone (TSH) 1.48 uIU/mL (0.358-3.74)
== END 2021-11-08 23:59 | disposition short-term general hospital (02) ==
LOC: BIMLAB 11:16
PROVIDERS: PCP Internal Medicine; Referring Provider Internal Medicine; Visit Provider Internal Medicine
DX: L65.9 Nonscarring hair loss, unspecified (principal); R53.83 Other fatigue
CPT/HCPCS: 36415; 80053; 84439; 84443; 85025

== ENCOUNTER → 2022-09-24 | Outpatient (CLI) | payer BC, SELFPAY ==
--- NOTE | 2022-09-24 07:12 | MRI_ITS ---
HISTORY: pain TECHNIQUE: Multiplanar and multisequence MR images of the lumbar spine were obtained without intravenous contrast. 126 images. COMPARISON: XR 09/18/2022. FINDINGS: VERTEBRAE: Vertebral body heights maintained. Degenerative bone or endplate changes at L5-S1 with intervertebral disc space narrowing. ALIGNMENT: No significant anterior or posterior subluxation. CONUS: Normal morphology and position of the conus medullaris at T12. INTERVERTEBRAL DISCS: T12-L1: No significant posterior disc protrusion, central canal stenosis, or foraminal narrowing based on the sagittal images. L1-2, L2-3: No significant posterior disc protrusion, central canal stenosis, or foraminal narrowing. L3-4: Mild central disc protrusion with mild facet arthropathy resulting in mild central canal stenosis and right foraminal narrowing. L4-5: Mild posterior disc protrusion with annular fissure and mild facet arthropathy resulting in minimal narrowing of the thecal sac and mild bilateral foraminal narrowing. L5-S1: Mild posterior disc bulge osteophyte complex with mild facet arthropathy resulting in minimal narrowing of the thecal sac and mild bilateral foraminal narrowing with abutment of the right L5 nerve root. SOFT TISSUES: No paraspinal fluid collection. MRI/Spine Lumbar (Routine) IMPRESSION: Mild degenerative disc disease in the lumbar spine as above. Electronically Signed: Mag Small MD at 8:40 EST ,
== END | disposition home or self-care (01) ==
LOC: MRI 07:12
PROVIDERS: PCP Internal Medicine; Referring Provider Orthopaedic Surgery; Visit Provider Orthopaedic Surgery
DX: M54.10 Radiculopathy, site unspecified (principal)
CPT/HCPCS: 72148

== ENCOUNTER → 2023-01-26 | Outpatient (CLI) | payer BC, SELFPAY ==
[2023-01-26 10:37] LABS: Absolute Neutrophil Count 4.8 X10^3/uL (2.0-7.7); Basophil# 0.06 X10^3/uL; Basophil% 0.8 % (0-1); Eosinophil# 0.21 X10^3/uL; Eosinophils% 2.7 % (0-5); Hematocrit 42.9 % (37-47); Hemoglobin 14.5 g/dL (12.0-15.0); Lymphocyte % 26.6 % (19-41); Mean Corp Hgb Conc 33.8 g/dL (32-36); Mean Corpuscular Hgb 30.6 pg (27.0-32.0); Mean Corpuscular Volume 90.5 fL (81-99); Monocyte# 0.67 X10^3/uL; Monocyte% 8.5 % (0-10); NRBC Flagged by Analyzer 0 % (0-5); Neutrophil # 4.84 X10^3/uL (2.7-7.7); Neutrophil % 61.3 % (47-70); Platelet Count 420 K/mm3 (150-450); RBC Distribution Width CV 13.1 % (11.6-14.6); RBC Distribution Width SD 43.6 fl (35.1-43.9); Red Blood Count 4.74 M/mm3 (4.2-5.4); White Blood Count 7.9 K/mm3 (4.4-11.0)
[2023-01-26 10:54] LABS: Vitamin B12 319 pg/mL (211-911)
[2023-01-26 11:08] LABS: ALB/GLOB Ratio 0.9 RATIO (0.9-2.4); AST(SGOT) 11 U/L (15-37); Alanine Aminotransfer ALT/SGPT 19 U/L (13-56); Albumin, Serum 3.6 g/dL (3.2-5.0); Alkaline Phosphatase 87 U/L (45-117); Anion Gap 4 (5-15); BUN 10 mg/dL (7-18); BUN/Creat Ratio 12.9 RATIO (10-20); Calcium,Total 8.9 mg/dL (8.5-10.1); Chloride 107 mmol/L (98-107); Cholesterol 212 mg/dL (200); Creatinine, Serum 0.78 mg/dL (0.55-1.02); EST Glomerular Filtration Rate 89 mL/min (>60); Est Glom Filt Rate - Afr Amer 108 mL/min (>60); Glucose 88 mg/dL (74-106); High Density Lipoprotein 75 mg/dL; Potassium 3.9 mmol/L (3.5-5.1); Protein, Total 7.6 g/dL (6.4-8.2); Sodium Level 138 mmol/L (136-145); Thyroid Stim Hormone (TSH) 1.57 uIU/mL (0.358-3.74); Triglycerides 157 mg/dL; Very Low Density Lipoprotein 31 mg/dL (5-40)
== END | disposition home or self-care (01) ==
LOC: BIMLAB 09:32
PROVIDERS: PCP Internal Medicine; Referring Provider Nurse Practitioner Family; Visit Provider Nurse Practitioner Family
DX: G43.909 Migraine, unspecified, not intractable, without status migrainosus (principal); M54.9 Dorsalgia, unspecified; G89.29 Other chronic pain; R53.83 Other fatigue; E56.9 Vitamin deficiency, unspecified
CPT/HCPCS: 36415; 80053; 80061; 82306; 82607; 84443; 85025

== ENCOUNTER → 2023-09-07 | Outpatient (CLI) | payer BC, SELFPAY ==
--- NOTE | 2023-09-07 11:00 | MRI_ITS ---
STUDY: MRI CERVICAL SPINE WITHOUT CONTRAST REASON FOR EXAM: Female, 38 years old. Neck pain TECHNIQUE: Standardized fat and water weighted pulse sequences were obtained in the sagittal and axial planes. COMPARISON: X-ray of the cervical spine dated August 06, 2023 FINDINGS: Normal foramen magnum and brainstem-cervical cord junction. Normal craniovertebral junction. Normal anterior atlantoaxial articulation. Normal odontoid process. There is straightening of the normal cervical lordosis. Normal vertebral bodies and posterior osseous elements. C2-3: Normal endplates. Normal disc height, signal and morphology. Normal central canal and intervertebral neural foramina. C3-4: Normal endplates. Normal disc height, signal and morphology. Normal central canal and intervertebral neural foramina. C4-5: Normal endplates. Normal disc height, signal and morphology. Normal central canal and intervertebral neural foramina. C5-6: Normal endplates. Mild disc desiccation and mild posterior disc space narrowing with slight annular bulging. Normal central canal and intervertebral neural foramina. C6-7: Bilateral nerve root sleeve simple cyst measuring 7 mm on the right and 5.3 mm on the left. Normal endplates. Mild disc desiccation and mild posterior disc space narrowing with slight annular bulging. Normal central canal and intervertebral neural foramina. C7-T1: Normal endplates. Normal disc height, signal and morphology. Normal central canal and intervertebral neural foramina. Normal cervical cord. There is no demonstrated cervical cord syrinx cavity. Normal visualized soft tissue structures. MRI/Spine Cervical (Routine) IMPRESSION: 1. Mild degenerative disc disease at C5-C6 and C6-C7 Electronically Signed: Julio Cesar Corado MD at 15:15 EST ,
== END | disposition home or self-care (01) ==
PROVIDERS: PCP Internal Medicine; Referring Provider Orthopaedic Surgery; Visit Provider Orthopaedic Surgery
DX: M50.20 Other cervical disc displacement, unspecified cervical region (principal)
CPT/HCPCS: 72141

== ENCOUNTER 2023-09-27 12:29 | Emergency (ER) | payer BC, SELFPAY ==
[2023-09-27] VITALS (7 sets, daily range): BP systolic 108–130; BP diastolic 67–87; PULSE 80–110; RESP 15–18; TEMP 36.6; O2SAT 96–100; BMI 24.7
--- NOTE | 2023-09-27 12:34 | EKG12_ITS ---
Test Reason : CP Blood Pressure : / mmHG Vent. Rate : 089 BPM Atrial Rate : 089 BPM P-R Int : 166 ms QRS Dur : 076 ms QT Int : 332 ms P-R-T Axes : 080 -01 058 degrees QTc Int : 403 ms Normal sinus rhythm with sinus arrhythmia Normal ECG Confirmed by PORTIA COVINGTON, KENNETH ([id number]), supervising editor trailer SARAH SAWANT ([id number]) on 09/28/2023 12:15:20 PM Referred By: Confirmed By:KENNETH PEARCE MD
--- NOTE | 2023-09-27 13:02 | NURSING ---
NO OLD EKGS
[2023-09-27 13:07] LABS: Absolute Lymphocyte Count 1.97 X10^3/uL (0.83-4.51); Absolute Neutrophil Count 5.8 X10^3/uL (2.0-7.7); Basophil# 0.12 X10^3/uL; Basophil% 1.4 % (0-1); Eosinophil# 0.08 X10^3/uL; Eosinophils% 0.9 % (0-5); Hematocrit 45.7 % (37-47); Hemoglobin 15.1 g/dL (12.0-15.0); Lymphocyte # 1.97 X10^3/ul (0.83-4.51); Lymphocyte % 23.1 % (19-41); Mean Corpuscular Hgb 29.7 pg (27.0-32.0); Mean Platelet Vol. 9.6 fl (6.2-12.0); Monocyte# 0.57 X10^3/uL; Monocyte% 6.7 % (0-10); NRBC Flagged by Analyzer 0 % (0-5); Neutrophil # 5.77 X10^3/uL (2.7-7.7); Neutrophil % 67.7 % (47-70); Platelet Count 429 K/mm3 (150-450); RBC Distribution Width CV 13.2 % (11.6-14.6); RBC Distribution Width SD 43.2 fl (35.1-43.9); Red Blood Count 5.08 M/mm3 (4.2-5.4); White Blood Count 8.5 K/mm3 (4.4-11.0)
--- NOTE | 2023-09-27 13:15 | RAD_ITS ---
STUDY: X-RAY CHEST REASON FOR EXAM: Female, 38 years old. Atypical chest pain TECHNIQUE: Single AP portable view of the chest. COMPARISON: None. FINDINGS: The lungs are clear and expanded. There is no demonstrated pleural abnormality. Normal size heart. Normal mediastinum and durga. Normal visualized pulmonary arteries. Normal visualized aortic arch and descending thoracic aorta. Normal visualized thoracic spine. Normal visualized ribs, clavicles, and shoulders. There is no demonstrated abnormality of the visualized soft tissue structures of the upper abdomen. RAD/Chest 1 View (Portable) IMPRESSION: Normal x-ray examination of the chest. Electronically Signed: Héctor Cortez MD at 13:35 EST ,
--- NOTE | 2023-09-27 13:17 | ED.VIS.CHEST ---
HPI <FERNANDO Sawyer - Last Filed: 09/27/23 16:26> History of Present Illness Chief Complaint: Chest Pain Narrative Narrative: 38-year-old female with no past medical history presents with chest pain that started at 10:40 AM while sitting in [employer]. She felt sharp pain in the left side of her chest occasionally radiated toward the left shoulder and right side of her chest. She left to lie down and when she got up and was getting dressed she had a lot of pain when moving her left shoulder. She denies shortness of breath, nausea, vomiting, or diaphoresis. No history of similar symptoms. She has no personal cardiopulmonary history. States she quit smoking about 10 years ago. She has no history of DVT/PE and her only risk factor is oral control. She has no leg pain or swelling. PFSH <FERNANDO Sawyer - Last Filed: 09/27/23 16:26> [facility] Medical History Back problem Chronic headaches Fatigue Frequent headaches H/O emotional problems Migraine Non-scarring hair loss Ovarian cyst Seasonal allergies Vision problem Vitamin deficiency Home Medications loratadine 10 mg tablet (Claritin) 10 mg PO QHS 04/19/18 [History Last Taken Unknown] desogestrel 0.15 mg-ethinyl estradiol 0.03 mg tablet (Enskyce) 1 tab PO DAILY 08/29/19 [History Last Taken Unknown] allergy shots subcut 06/19/21 [History Last Taken Unknown] montelukast 10 mg tablet (Singulair) 10 mg PO QHS #90 tabs 01/26/23 [Rx Last Taken Unknown] rizatriptan 10 mg tablet 10 mg PO ONCE PRN migraine headache #14 tabs 01/26/23 [Rx Last Taken Unknown] topiramate 100 mg tablet 100 mg PO 09/17/23 [History Last Taken Unknown] Allergy/AdvReac Type Severity Reaction Status Date / Time No Known Allergies Allergy Verified 09/27/23 12:30 Family History Mother Diabetes Cancer skin Father Hypertension Hyperlipemia Anxiety and depression Brother celiac Grandmother Cancer skin Diabetes Other Alcohol abuse Arthritis Skin cancer Thyroid disorder Surgical History history of mole removal History of placement of ear tubes History of tonsillectomy Social History Smoking Status: Never smoker how long ago did patient quit smokin alcohol intake: current alcohol intake frequency: 0-2 drinks per day substance use type: does not use what type of physical activity do you participate in: none and additional details: cardio frequency: 1-2 times per week ROS <FERNANDO Sawyer - Last Filed: 09/27/23 16:26> ROS ED ROS Narrative Constitutional: Negative for fever, chills, malaise. CVS: Positive for chest pain. Negative for palpitations, syncope. Respiratory: Negative for shortness of breath, cough. GI: Negative for abdominal pain, nausea, vomiting. Neuro: Negative for headache. EXAM <FERNANDO Sawyer - Last Filed: 09/27/23 16:26> Physical Exam Narrative Exam Narrative: CONST: Patient sitting in no acute distress. EYES: Normal inspection. NECK: Normal inspection. RESP: No respiratory distress, CTAB. CVS: Regular rate and rhythm, no murmur, no gallop. ABD: Soft and nontender, no guarding or rebound, nondistended, no hepatosplenomegaly. SKIN: Color normal, no rash, warm, dry, intact. EXTREMITIES: Normal appearance, full ROM all extremities, 2+ radial and DP pulses, no pedal edema. NEURO: Oriented x4. PSYCH: Normal affect. Const Vital Signs: 09/27/23 12:29 09/27/23 12:34 09/27/23 13:56 Temperature 98 F Temperature Source Temporal Pulse Rate 110 H Respiratory Rate 16 Respiratory Effort Normal Blood Pressure 130/87 H Blood Pressure Mean 101 Pulse Ox 100 99 Oxygen Delivery Method Room Air Room Air 09/27/23 13:29 09/27/23 14:00 09/27/23 15:00 Temperature Temperature Source Pulse Rate 83 80 90 Respiratory Rate 16 18 16 Respiratory Effort Blood Pressure 109/67 109/67 108/73 Blood Pressure Mean 81 81 84 Pulse Ox 96 98 100 Oxygen Delivery Method Room Air Room Air Room Air 09/27/23 16:00 09/27/23 16:26 Temperature Temperature Source Pulse Rate 85 85 Respiratory Rate 15 15 Respiratory Effort Blood Pressure 108/69 108/69 Blood Pressure Mean 82 82 Pulse Ox 99 99 Oxygen Delivery Method Room Air <Dr. Kevin Mobley DO - Last Filed: 09/28/23 09:28> Physical Exam Const Vital Signs: 09/27/23 12:29 09/27/23 12:34 09/27/23 13:56 Temperature 98 F Temperature Source Temporal Pulse Rate 110 H Respiratory Rate 16 Respiratory Effort Normal Blood Pressure 130/87 H Blood Pressure Mean 101 Pulse Ox 100 99 Oxygen Delivery Method Room Air Room Air 09/27/23 13:29 09/27/23 14:00 09/27/23 15:00 Temperature Temperature Source Pulse Rate 83 80 90 Respiratory Rate 16 18 16 Respiratory Effort Blood Pressure 109/67 109/67 108/73 Blood Pressure Mean 81 81 84 Pulse Ox 96 98 100 Oxygen Delivery Method Room Air Room Air Room Air 09/27/23 16:00 09/27/23 16:26 Temperature Temperature Source Pulse Rate 85 85 Respiratory Rate 15 15 Respiratory Effort Blood Pressure 108/69 108/69 Blood Pressure Mean 82 82 Pulse Ox 99 99 Oxygen Delivery Method Room Air <FERNANDO Sawyer - Last Filed: 09/27/23 16:26> Heart Score History: Slightly/Non-Suspicious ECG: Normal Age: </= 46 years Risk Factors: No Risk Factors Troponin: </= Normal Limit Score: 0 <Dr. Kevin Mobley DO - Last Filed: 09/28/23 09:28> Heart Score Score: 0 [facility] <FERNANDO Sawyer - Last Filed: 09/27/23 16:26> [facility] Narrative Medical decision making narrative: History gathered from: Patient and spouse Patient developed left-sided chest pain at rest that radiates toward her shoulder. No associated symptoms. Seems worse with moving her shoulder. She appears well and nontoxic. HR is 110, otherwise normal vital signs. During my exam she is still slightly tachycardic with regular rhythm and no murmurs. Lungs clear. Abdomen soft and nontender. She has no reproducible tenderness of the chest wall or shoulder. Differential includes ACS, PE, costochondritis, musculoskeletal, GERD. CBC and BMP are unremarkable. EKG is nonischemic and troponins x 2 negative. D-dimer negative. CXR shows no acute process. Patient seems very comfortable in the ED and declined analgesia. Her heart rate improved without intervention. I recommend she follow-up with her primary care this week and she was discharged in stable condition. Lab Data Attestation: I reviewed the patient's lab results. Labs: Laboratory Results - last 24 hr 09/27/23 09/27/23 09/27/23 12:51 13:00 13:45 WBC 8.5 RBC 5.08 Hgb 15.1 H Hct 45.7 MCV 90.0 MCH 29.7 MCHC 33.0 RDW Std Deviation 43.2 RDW Coeff of Julio 13.2 Plt Count 429 MPV 9.6 Immature Gran % (Auto) 0.200 Neut % (Auto) 67.7 Lymph % (Auto) 23.1 [place] % (Auto) 6.7 Eos % (Auto) 0.9 Baso % (Auto) 1.4 H Absolute Neuts (auto) 5.8 Absolute Lymphs (auto) 1.97 Nucleated RBC % 0 D-Dimer Quant (PE/DVT) Cancelled 0.35 Sodium 140 Cancelled Potassium 3.7 Cancelled Chloride 111 H Cancelled Carbon Dioxide 20.0 L Cancelled Anion Gap 9 Cancelled BUN 9 Cancelled Creatinine 1.02 Cancelled Estim Creat Clear Calc 70.69 Cancelled Est GFR (MDRD) Af Amer 78 Cancelled Est GFR (MDRD) Non-Af 65 Cancelled BUN/Creatinine Ratio 8.8 L Cancelled Glucose 97 Cancelled Calcium 8.9 Cancelled Troponin I High Sens 10 Cancelled 09/27/23 15:42 WBC RBC Hgb Hct MCV MCH MCHC RDW Std Deviation RDW Coeff of Julio Plt Count MPV Immature Gran % (Auto) Neut % (Auto) Lymph % (Auto) [place] % (Auto) Eos % (Auto) Baso % (Auto) Absolute Neuts (auto) Absolute Lymphs (auto) Nucleated RBC % D-Dimer Quant (PE/DVT) Sodium Potassium Chloride Carbon Dioxide Anion Gap BUN Creatinine Estim Creat Clear Calc Est GFR (MDRD) Af Amer Est GFR (MDRD) Non-Af BUN/Creatinine Ratio Glucose Calcium Troponin I High Sens 11 Radiography Diagnostic Testing: Clinical Impression(s) from Imaging Studies Chest X-Ray 09/27/23 13:15 IMPRESSION: Normal x-ray examination of the chest. Electronically Signed: Héctor Cortez MD at 13:35 EST , ED attending interpretation of 1-view chest x-ray shows normal heart size, no acute infiltrate, edema, or effusion. EKG Initial EKG: Attestation: I personally reviewed and interpreted this EKG as follows: Interpretation: Sinus Rhythm and No Acute Injury Pattern Comments: Normal sinus rhythm with sinus arrhythmia at 89 bpm Normal intervals, no ischemic changes <Dr. Kevin Mobley, DO - Last Filed: 09/28/23 09:28> [facility] MDM Narrative Medical decision making narrative: History gathered from: Patient and spouse Patient developed left-sided chest pain at rest that radiates toward her shoulder. No associated symptoms. Seems worse with moving her shoulder. She appears well and nontoxic. HR is 110, otherwise normal vital signs. During my exam she is still slightly tachycardic with regular rhythm and no murmurs. Lungs clear. Abdomen soft and nontender. She has no reproducible tenderness of the chest wall or shoulder. Differential includes ACS, PE, costochondritis, musculoskeletal, GERD. CBC and BMP are unremarkable. EKG is nonischemic and troponins x 2 negative. D-dimer negative. CXR shows no acute process. Patient seems very comfortable in the ED and declined analgesia. Her heart rate improved without intervention. I recommend she follow-up with her primary care this week and she was discharged in stable condition. This patient was seen with a PA/LACER AND TIER Individually assessed they patient including history and physical. I have reviewed everything on the chart that is available and agree with the documentation provided by the PA/[employer]ACER AND TIER including discussion about the assessment, treatment plan, discussion, and return precautions. Patient left-sided chest pain. Work-up ultimately is normal. Delta troponin which is unchanged from previous. D-dimer negative. Chest x-ray on my interpretation shows no acute process. EKG on my interpretation showed a normal sinus rhythm ventricular rate of 89 bpm without sign ischemic change or ectopy. Patient did not want to be treated for her pain. I tried multiple times to treat it even with Tylenol ibuprofen. She declines. At this point she stable for discharge. Return precautions were discussed. Lab Data Labs: Laboratory Results - last 24 hr 09/27/23 09/27/23 09/27/23 12:51 13:00 13:45 WBC 8.5 RBC 5.08 Hgb 15.1 H Hct 45.7 MCV 90.0 MCH 29.7 MCHC 33.0 RDW Std Deviation 43.2 RDW Coeff of Julio 13.2 Plt Count 429 MPV 9.6 Immature Gran % (Auto) 0.200 Neut % (Auto) 67.7 Lymph % (Auto) 23.1 [place] % (Auto) 6.7 Eos % (Auto) 0.9 Baso % (Auto) 1.4 H Absolute Neuts (auto) 5.8 Absolute Lymphs (auto) 1.97 Nucleated RBC % 0 D-Dimer Quant (PE/DVT) Cancelled 0.35 Sodium 140 Cancelled Potassium 3.7 Cancelled Chloride 111 H Cancelled Carbon Dioxide 20.0 L Cancelled Anion Gap 9 Cancelled BUN 9 Cancelled Creatinine 1.02 Cancelled Estim Creat Clear Calc 70.69 Cancelled Est GFR (MDRD) Af Amer 78 Cancelled Est GFR (MDRD) Non-Af 65 Cancelled BUN/Creatinine Ratio 8.8 L Cancelled Glucose 97 Cancelled Calcium 8.9 Cancelled Troponin I High Sens 10 Cancelled 09/27/23 15:42 WBC RBC Hgb Hct MCV MCH MCHC RDW Std Deviation RDW Coeff of Julio Plt Count MPV Immature Gran % (Auto) Neut % (Auto) Lymph % (Auto) [place] % (Auto) Eos % (Auto) Baso % (Auto) Absolute Neuts (auto) Absolute Lymphs (auto) Nucleated RBC % D-Dimer Quant (PE/DVT) Sodium Potassium Chloride Carbon Dioxide Anion Gap BUN Creatinine Estim Creat Clear Calc Est GFR (MDRD) Af Amer Est GFR (MDRD) Non-Af BUN/Creatinine Ratio Glucose Calcium Troponin I High Sens 11 Radiography Diagnostic Testing: Clinical Impression(s) from Imaging Studies Chest X-Ray 09/27/23 13:15 IMPRESSION: Normal x-ray examination of the chest. Electronically Signed: Héctor Cortez MD at 13:35 EST , Discharge Plan Triage Chief Complaint: Chest Pain ED Midlevel Provider: Piedad Healy ED Provider: Kevin Mobley Dx/Rx/DC Orders Clinical Impression: Chest pain Instructions: ED Chest Pain, Noncardiac Prescriptions: No Action loratadine [Claritin] 10 mg tablet 10 mg PO QHS desogestrel-ethinyl estradiol [Enskyce] 0.15-0.03 mg tablet 1 tab PO DAILY allergy shots subcut Patient Comments: once weekly rizatriptan 10 mg tablet 10 mg PO ONCE PRN (Reason: migraine headache) Qty: 14 2RF Rx Instructions: may repeat once after at least 2 hours montelukast [Singulair] 10 mg tablet 10 mg PO QHS Qty: 90 3RF topiramate 100 mg tablet 100 mg PO Primary Care Provider: Ninoska King Referrals: Ninoska King MD [Primary Care Provider] - Activity Restrictions/Additional Instructions: Take Tylenol or ibuprofen and follow-up with your primary care doctor. Disposition Disposition: Home, Self Care Discharge Date/Time: 09/27/23 16:27
--- NOTE | 2023-09-27 13:42 | NURSING ---
BLUE TOP TOO SHORT, NEEDS REDRAWN
[2023-09-27 14:07] LABS: D-Dimer Quantitative (DVT/PE) 0.35 FEU/ug/m (0.27-0.49)
[2023-09-27 14:12] LABS: Anion Gap 9 (5-15); BUN 9 mg/dL (7-18); BUN/Creat Ratio 8.8 RATIO (10-20); Calcium,Total 8.9 mg/dL (8.5-10.1); Chloride 111 mmol/L (98-107); Creatinine, Serum 1.02 mg/dL (0.55-1.02); EST Glomerular Filtration Rate 65 mL/min (>60); Est Glom Filt Rate - Afr Amer 78 mL/min (>60); Estimated Creatinine Clearance 70.69 ml/min; Glucose 97 mg/dL (74-106); Potassium 3.7 mmol/L (3.5-5.1); Sodium Level 140 mmol/L (136-145); Troponin-I HS (w/2H Reflex) 10 pg/mL (3.0-54.0)
[2023-09-27 15:51] LABS: Reflex Troponin-HS? (from REC) Y
[2023-09-27 16:17] LABS: Troponin-I HS 11 pg/mL (3.0-54.0)
== END 2023-09-27 16:27 | disposition home or self-care (01) ==
PROVIDERS: Emergency Provider Student in an Organized Health Care Education/Training Program; PCP Internal Medicine; Visit Provider Student in an Organized Health Care Education/Training Program
DX: R07.9 Chest pain, unspecified (principal); Z87.891 Personal history of nicotine dependence
CPT/HCPCS: 71045; 80048; 84484; 85025; 85379; 93005; 99284; A4216

== ENCOUNTER → 2023-10-30 | Outpatient (CLI) | payer BC, SELFPAY ==
[2023-10-30 18:14] LABS: T4 Free Direct 0.85 ng/dL (0.76-1.46); Thyroid Stim Hormone (TSH) 1.67 uIU/mL (0.358-3.74)
== END | disposition home or self-care (01) ==
LOC: BIMLAB 15:40
PROVIDERS: PCP Internal Medicine; Visit Provider Internal Medicine
DX: R19.7 Diarrhea, unspecified (principal)
CPT/HCPCS: 36415; 84439; 84443

== ENCOUNTER → 2023-11-09 | Outpatient (CLI) | payer BC, SELFPAY ==
--- OUTSIDE RECORDS SUMMARY | 2023-11-09 08:59 | XMS RPT_ITS | CCD ---
Author Name Unknown Address [address] [place] [address] Organization [facility] Care Team Providers Care Driver Medic Name Role Phone Asbtamia, Idania Unavailable Unavailable Asbtamia, Idania Unavailable Unavailable No Doctor Assigned, Nodr Unavailable Unavail able Shireen Castro MD Primary Care Provider Shireen Castro MD Primary Care Provider [phone] ANGELA LIU Attending Unavailable SHIREEN CASTRO Primary Care Unavailable ALIDA BURNS Attending Unavailable SHIREEN CASTRO Primary Care Unavailable Medications Current Medications Medication Drug Class(es) Dates Sig (Normalized) Sig (Original) amitriptyline hydrochloride 10 mg oral tablet (1 source) Tricyclic Antidepressant Start: 08-17-2020 End: 10-01-2022 take 1 tablet by mouth once daily at bedtime amitriptyline (ELAVIL) 10 mg tablet Take 1 tablet by mouth daily at bedtime. 30 tablet 11 08/17/2020 10/01/2022 Discontinued Completed/Discontinued Medications Medication Drug Class(es) Dates Sig (Normalized) Sig (Original) azelastine hydrochloride 0.5 mg/ml ophthalmic solution (4 sources) Histamine-1 Receptor Antagonist Start: 02-24-2019 Azelastine HCl (OPTIVAR) 0.05 % ophthalmic solution Desogestrel / Ethinyl Estradiol (5 sources) Progestin, Estrogen Start: 10-01-2022 take 1 tablet by mouth once daily, then take 0.15 tablet by mouth once Desogestrel-Ethinyl Estradiol (APRI) 0.15-0.03 mg per tablet Indications: Surveillance for control, oral contraceptives Take 1 tablet by mouth once daily. 84 tablet 4 10/01/2022 Active Problems Active Problems Problem Classification Problem Date Documented Date Episodic/Chronic Anxiety disorders (4 sources) Anxiety disorder; Translations: [Anxiety disorder, unspecified] Onset: 01-18-2019 08-03-2019 Chronic Contraceptive and procreative management (2 sources) Oral contraception; Translations: [Encounter for surveillance of contraceptive pills] Episodic Genitourinary symptoms and ill-defined conditions (1 source) Genuine stress incontinence; Translations: [Stress incontinence (female) (male)] Chronic Headache; including migraine (6 sources) Migraine without aura, not refractory ; Translations: [Migraine without aura, not intractable, without status migrainosus] Onset: 12-20-2020 12-20-2020 Chronic Immunizations and screening for infectious disease (1 source) Patient encounter status; Translations: [Encounter for screening for human papillomavirus (HPV)] Episodic Other female genital disorders (1 source) Vaginal discharge; Translations: [Other specified noninflammatory disorders of vagina] Episodic Other screening for suspected conditions (not mental disorders or infectious disease) (1 source) Cancer cervix screening status; Translations: [Encounter for screening for malignant neoplasm of cervix] Episodic Past or Other Problems Problem Classification Problem Date Documented Date Episodic/Chronic Other connective tissue disease (4 sources) Chronic musculoskeletal pain; Translations: [Myalgia, other site] Onset: 08-17-2020 08-17-2020 Episodic Results Test Name Value Interpretation Reference Range Facil it Vital Signs Date Time Vital Sign Value Performing Clinician Edwina lowry 08-26-2023 09:57-0400 Body height 168.9 cm Angeal Liu APRN.CNP Work Phone: [facility] 08-26-2023 09:57-0400 Body weight 72.58 kg Angela Liu APRN.CNP Work Phone: [facility] 08-26-2023 09:57-0400 Diastolic blood pressure 64 mm[Hg] Angela Liu APRN.CNP Work Phone: [facility] 08-26-2023 09:57-0400 Heart rate 72 /min Angela Liu APRN.CNP Work Phone: [facility] 08-26-2023 09:57-0400 Systolic blood pressure 118 mm[Hg] Angela Liu APRN.CNP Work Phone: [facility] 10-01-2022 08:45-0500 Body height 168.9 cm Alida Burns APRN.KELLY Work Phone: [facility] 10-01-2022 08:45-0500 Body weight 72.12 kg Alida Burns APRN.DECORATING INSPECTOR Work Phone: [facility] 10-01-2022 08:45-0500 Diastolic blood pressure 68 mm[Hg] Alida Burns APRN.DECORATING INSPECTOR Work Phone: [facility] 10-01-2022 08:45-0500 Systolic blood pressure 102 mm[Hg] Alida Burns APRN.KELLY Work Phone: [facility] Encounters Encounter Date Encounter Type Care Provider Facility Start: 09-01-2023 Telephone encounter Angela Liu APRN.CNP Work Phone: Neurology Plan of Treatment Date Care Activity Detail Author Start: 10-01-2027 HPV TESTING HPV TESTING [facility] Start: 10-01-2027 PAP TESTING PAP TESTING [facility] Start: 01-17-2025 Urine microalbumin profile [facility] Start: 07-03-2023 Influenza vaccination Influenza Vaccine (#1) [facility] Start: 11-02-2022 Depression Assessment Depression Assessment [facility] Start: 10-30-2022 HPV TESTING HPV TESTING [facility] Start: 10-30-2022 PAP TESTING PAP TESTING [facility] Start: 07-03-2022 Influenza vaccination INFLUENZA (#1) [facility] Start: 11-02-2021 DEPRESSION ASSESSMENT DEPRESSION ASSESSMENT [facility] Start: 2004 HEPATITIS C SCREENING HEPATITIS C SCREENING [facility] Start: 03-04-1987 COVID-19 VACCINE (#1) COVID-19 VACCINE (#1) [facility] BACTERIAL VAGINOSIS AMPLIFICATION BACTERIAL VAGINOSIS AMPLIFICATION Lab Routine Vaginal discharge Ordered: 10/01/2022 [facility] Work Phone: Immunizations Immunization Date Immunization Notes Care Provider Fa mars 08-09-2020 influenza virus vaccine, unspecified formulation Angela Liu APRN.DECORATING INSPECTOR Work Phone: [facility] 08-28-2017 influenza, injectabl e, quadrivalent, contains preservative Alida Burns APRN.[facility] Work Phone: [facility] 01-17-2015 tetanus toxoid, redu sumeet diphtheria toxoid, and acellular pertussis vaccine, adsorbed Alida Burns APRN.[facility] Work Phone: [facility] Work Phone: 01-03-2015 RHO(D) immune globul in- IV or IM Alida Burns APRN.[facility] Work Phone: [facility] Work Phone: 08-17-2014 influenza, seasonal, injectable Alida Burns APRN.[facility] Work Phone: [facility] 10-08-2013 influenza virus vaccine, unspecified formulation Alida Burns APRN.[facility] Work Phone: [facility] 01-03-2013 RHO(D) immune globul in- IV or IM Alida Burns APRN.[facility] Work Phone: [facility] Work Phone: 09-13-2012 influenza virus vaccine, unspecified formulation Alida Burns APRN.[facility] Work Phone: [facility] Work Phone: 05-17-1999 hepatitis B vaccine, pediatric or pediatric/adolescent dosage Alida Burns APRN.DECORATING INSPECTOR Work Phone: [facility] Work Phone: 05-17-1999 measles, mumps and rubella virus vaccine Alida Burns APRN.DECORATING INSPECTOR Work Phone: [facility] Work Phone: 05-30-1998 hepatitis B vaccine, pediatric or pediatric/adolescent dosage Alida Burns APRN.DECORATING INSPECTOR Work Phone: [facility] Work Phone: 02-26-1998 hepatitis B vaccine, pediatric or pediatric/adolescent dosage Alida Burns APRN.DECORATING INSPECTOR Work Phone: [facility] Work Phone: 06-04-1992 diphtheria, tetanus toxoids and acellular pertussis vaccine Alida Burns APRN.DECORATING INSPECTOR Work Phone: [facility] Work Phone: 06-04-1992 poliovirus vaccine, inactivated Alida Burns APRN.DECORATING INSPECTOR Work Phone: [facility] Work Phone: 1990 Chicken Pox (disease) Alida wood APRN.DECORATING INSPECTOR Work Phone: [facility] Work Phone: 02-05-1989 haemophilus influenz ae type b vaccine, HbOC conjugate Alida Burns APRN.[facility] Work Phone: [facility] Work Phone: 04-02-1988 diphtheria, tetanus toxoids and acellular pertussis vaccine Alida Burns APRN.[facility] Work Phone: [facility] Work Phone: 04-02-1988 poliovirus vaccine, inactivated Alida Burns APRN.[facility] Work Phone: [facility] Work Phone: 01-02-1988 measles, mumps and rubella virus vaccine Alida Burns APRN.[facility] Work Phone: [facility] Work Phone: 07-04-1987 diphtheria, tetanus toxoids and acellular pertussis vaccine Alida Burns APRN.DECORATING INSPECTOR Work Phone: [facility] Work Phone: 04-04-1987 diphtheria, tetanus toxoids and acellular pertussis vaccine Alida Burns APRN.DECORATING INSPECTOR Work Phone: [facility] Work Phone: 04-04-1987 poliovirus vaccine, inactivated Alida Burns APRN.DECORATING INSPECTOR Work Phone: [facility] Work Phone: 01-23-1987 diphtheria, tetanus toxoids and acellular pertussis vaccine Alida Burns APRN.DECORATING INSPECTOR Work Phone: [facility] Work Phone: 01-23-1987 poliovirus vaccine, inactivated Alida Burns APRN.DECORATING INSPECTOR Work Phone: [facility] Work Phone: Payers Date Payer Category Payer Unknown [id number] 2021 Unknown [id number] 2018 Unknown Self-pay Social History Date Type Detail Facility Start: 08-05-2012 End: 08-26-2023 Tobacco smoking status NHIS Ex-smoker [facility] Work Phone: End: 07-22-2012 History of tobacco use Current smoker [facility] Work Phone: End: 07-22-2012 History of tobacco use Cigarette Smoker [facility] Work Phone: Start: 08-05-2012 End: 08-26-2023 Tobacco use and exposure Smokeless tobacco non-user [facility] Work Phone: Start: 10-01-2022 End: 08-26-2023 Alcohol intake Current drinker of alcohol (finding) [facility] Start: 08-07-2020 History SDOH Social Connections Phone 5 [facility] Start: 08-07-2020 History SDOH Social Connections Get Together 2 [facility] Start: 08-07-2020 History SDOH Social Connections [employer] 3 [facility] Start: 08-07-2020 History SDOH Social Connections Meetings 1 [facility] Start: 08-07-2020 History SDOH Physical Activity DPW 0 [facility] Start: 11-11-2019 Education 13 [facility] Start: 10-01-2022 Alcohol Comment rare [facility] Start: 1985 Sex Assigned At Female [facility] Start: 08-07-2020 End: 08-26-2023 History of Social function [facility] Work Phone: Start: 08-07-2020 End: 08-26-2023 Social connection and isolation panel [facility] Work Phone: Do you belong to any clubs or organizations such as jew groups, unions, fraternal or athletic groups, or school groups? No [facility] Work Phone: Are you now , , , , never or living with a partner? [facility] Work Phone: How hard is it for y ou to pay for the very basics like food, housing, medical care, and heating Not hard at all [facility] Work Phone: Do you feel stress - tense, restless, nervous, or anxious, or unable to sleep at night because your mind is troubled all the time - these days [OSQ] Only a little [facility] Work Phone: (I/We) worried wheth er (my/our) food would run out before (I/we) got money to buy more. Never true [facility] Work Phone: Start: 08-15-2020 Gender identity Identifies as female gender (finding) [facility] Start: 08-15-2020 Sexual orientation Heterosexual (finding) [facility] Clinical Notes 08-17-2020 to 09-01-2023 Telephone Encounter - Donna Ruiz - 09/01/2023 5:24 PM EDTPatient InstructionsAngela Liu APRN.CNP - 08/26/2023 10:00 AM EDTPatient Instructions Note Date & Type Note Facility 09-01-2023 Miscellaneous Notes Images from the original note were not included. Prior Authorization for Medications Requested by (Jj, Pharmacy, Patient Call, Fax) : Fax Pharmacy Name: [facility] Phone # : [phone] Name of Medication : Ubrelvy Dose : 100mg If renewal, auth date expiration: NA Prescribing Provider: Alexa Last OV: 08/26/23 with Alexa Insurance Provider : All/ Yolanda Is insurance card scanned in, including Rx info? Yes Insurance CoverMyMeds Loza: E-PA? Yes documented in this encounter [facility] 08-26-2023 Note HNO ID: [id number] Author: Angela Liu APRN.DECORATING INSPECTOR Service: ? Author Type: Nurse Practitioner Type: Progress Notes Filed: 08/26/2023 12:15 PM Note Text: [facility] - Follow up Visit Accompanied by: Self Primary Problem List: ACTIVE PROBLEM LIST Anxiety Disorder, Unspecified Chronic Musculoskeletal Pain Migraine Without Aura and Without Status Migrainosus, Not Intractable Chief Complaint: Follow-up Impression and Plan from last visit: Virtual visit 12/20/[address] Whitlock. Ms. Cosme is a 37-year-old female with history significant for migraine, depression and anxiety. At her last visit she was to continue Amitriptyline and Maxalt. Interval Headache History: She has had increase in migraines over the past year and saw her PCP for it. She was restarted on the Amitriptyline since this was effective in the past for her. It led to weight gain and sweating. It was not helping the migraines so they stopped it. She was prescribed Topamax by her PCP but did not start yet. She has had an intractable migraine for the past 8 days. Headache 1 Onset: - Teens. Location: right, retro-orbital, temporal and frontal (Can go to left but rare.) Quality/Description: sharp (shooting) Associated Symptoms: Photophobia: no Phonophobia: no Nausea: yes - rare Other symptoms: neck pain and dizziness Number of migraine headache days/month: 8 Migraine headache severity: 7/10 Number of headache free days/month: 22 Duration of headaches with treatment: Duration of attacks with treatment: Multiple days. Current abortive treatment: Maxalt (not effective) Triggers: None identified. Relieving factors: Nothing Most common time of day for headache to begin: during the middle of the night and upon awakening Headache status since the last visit: worse Prior Therapies Duration of Use Dose Reason for Discontinuation Anti-Anxiety Buspirone (Buspar) Anti-Convulsant Topiramate (Topamax, Trokendi XL, Qudexy) Anti-Depressant and Antipsychotic Amitriptyline (Elavil) Escitalopram (Lexapro) Antiemetics Ondansetron Anti-Migraine Rizatriptan (Maxalt) Sumatriptan (Imitrex, Sumavel) Other Medications Prednisone PAST MEDICAL HISTORY Diagnosis Date Anxiety disorder, unspecified 01/18/2019 DEPRESSION FRACTURE AGE 9 ARM,PLAYGROUND ACCIDENT Rh incompatibility PAST SURGICAL HISTORY Procedure Laterality Date APPENDECTOMY 11/2020 MYRINGOTOMY ASPIRAND/EUSTACHIAN TUBE NFLTJ ANES Myringotomy/tubesX4 PAST SURGICAL HISTORY OF EXCISION OF A MOLE PAST SURGICAL HISTORY OF lump removal r.post auricular TONSILLECTOMY PRIMARY/SECONDARY ALLERGIES No Known Allergies Issues and questions to be addressed: Medications cyanocobalamin (B-12 DOTS) 500 mcg tablet Take by mouth once daily. ergocalciferol, vitamin D2, (VITAMIN D2 ORAL) Take by mouth. montelukast (SINGULAIR) 10 mg tablet Take 10 mg by mouth daily at bedtime. Desogestrel-Ethinyl Estradiol (APRI) 0.15-0.03 mg per tablet Take 1 tablet by mouth once daily. rizatriptan (MAXALT) 10 mg tablet 1 tab at earliest sign of migraine. May repeat once in 2 hours if needed. Give max allowed per insurance. loratadine (CLARITIN) 10 mg tablet 10 mg. Azelastine HCl (OPTIVAR) 0.05 % ophthalmic solution I have reviewed the [facility] Status Assessment responses and discussed these with the patient: Yes, Angela Liu APRN.DECORATING INSPECTOR HIT-6 08/15/2020 11/27/2020 08/24/2023 HIT-6 62 (Severe impact) 55 (Moderate impact) 66 (Severe impact) JENNIE - 2/7 SCORES 12/14/2020 08/24/2023 JENNIE-2 Score 1 0 Migraine Specific QOL - Higher scores indicate better HRQL 08/15/2020 11/27/2020 08/24/2023 Role Function-Restrictive Transformed Score (range: 0-100) 68.57 100 45.71 Role Function-Preventive Transformed Score (range: 0-100) 90 100 80 Emotional Function Transformed Score (range: 0-100) 93.33 100 66.67 PHQ-9 08/15/2020 11/27/2020 08/24/2023 Score 5 2 3 Studies to Review: No New Health Issues: No New Social History: No New Family History: No Review of Systems: Sleep: Trouble staying asleep at times. Does wake through the night. Possible snoring. Mood: Stable. Energy: Fair. Weight gain of 7 lbs when she restarted Amitriptyline. Exercising: No. Physical Examination: BP 118/64 Pulse 72 Ht 168.9 cm (5' 6.5 ) Wt 72.6 kg (160 lb) LMP 09/10/2022 (Exact Date) BMI 25.44 kg/m? General: Well appearing, in no acute distress, alert. HEENT: Normocephalic/atraumatic. No carotid bruits auscultated. Skin: Color, texture, turgor normal. No rashes or lesions. Lungs: Normal breath sounds bilaterally. CV: RRR, normal S1, S2 auscultated, and no murmurs. Musculoskeletal: No gross joint deformities. No tenderness to palpation of cervical spine and upper trapezius with mild hypertonicity. Suboccipital tenderness on R > L. Neurological: Normal mental status. Cranial nerves II-XII intact. Normal tone and strength. Yoana (more content not included)... [facility] 08-26-2023 Instructions Angela Liu APRN.[facility] - 08/26/2023 10:33 AM EDT We will trial Ubrogepant (Ubrelvy) 100 mg tablet for migraine rescue. Take 1 tablet at onset of migraine/headache. May repeat dose in 2 hours if needed. Do NOT take more than 2 tablets in 24 hours. Max dose is 200 mg in 24 hours. Potential side effects include drowsiness, nausea and dry mouth. 2. Topamax Dosing Schedule Week 1: 25 mg each evening Week 2: 50 mg each evening Week 3: 75 mg each evening Week 4. 100 mg each evening *Find the smallest dose that works. Side effects that may occur are cognitive slowing (word finding problems), paresthesias (tingling in hands and feet), weight loss due to decreased appetite, and rarely kidney stones or reversible acute glaucoma. If you experience any of these side effects please call the office at [phone] or send a [employer]viv[employer] message if it is not urgent. Monitor your weight. Inform the office if you are or planning on getting as this medication is not safe during . Do not abruptly stop taking this medication. Please advise, it may take 4 to 6 weeks to show benefit for your pain. 3. We will do a Medrol dose pack to try and break your migraine cycle. Take with food to avoid stomach upset. No anti-inflammatory medications like Ibuprofen, Aleve, Excedrin, etc. while taking the steroid. documented in this encounter [facility] 08-26-2023 History of Presen t illness Narrative Headache Center - Follow up Visit Accompanied by: Self Primary Problem List: ACTIVE PROBLEM LIST Anxiety Disorder, Unspecified Chronic Musculoskeletal Pain Migraine Without Aura and Without Status Migrainosus, Not Intractable Chief Complaint: Follow-up Impression and Plan from last visit: Virtual visit 12/20/[address] Whitlock. Ms. Cosme is a 37-year-old female with history significant for migraine, depression and anxiety. At her last visit she was to continue Amitriptyline and Maxalt. Interval Headache History: She has had increase in migraines over the past year and saw her PCP for it. She was restarted on the Amitriptyline since this was effective in the past for her. It led to weight gain and sweating. It was not helping the migraines so they stopped it. She was prescribed Topamax by her PCP but did not start yet. She has had an intractable migraine for the past 8 days. Headache 1 Onset: - Teens. Location: right, retro-orbital, temporal and frontal (Can go to left but rare.) Quality/Description: sharp (shooting) Associated Symptoms: Photophobia: no Phonophobia: no Nausea: yes - rare Other symptoms: neck pain and dizziness Number of migraine headache days/month: 8 Migraine headache severity: 7/10 Number of headache free days/month: 22 Duration of headaches with treatment: Duration of attacks with treatment: Multiple days. Current abortive treatment: Maxalt (not effective) Triggers: None identified. Relieving factors: Nothing Most common time of day for headache to begin: during the middle of the night and upon awakening Headache status since the last visit: worse Prior Therapies Duration of Use Dose Reason for Discontinuation Anti-Anxiety Buspirone (Buspar) Anti-Convulsant Topiramate (Topamax, Trokendi XL, Qudexy) Anti-Depressant and Antipsychotic Amitriptyline (Elavil) Escitalopram (Lexapro) Antiemetics Ondansetron Anti-Migraine Rizatriptan (Maxalt) Sumatriptan (Imitrex, Sumavel) Other Medications Prednisone PAST MEDICAL HISTORY Diagnosis Date Anxiety disorder, unspecified 01/18/2019 DEPRESSION FRACTURE AGE 9 ARM,PLAYGROUND ACCIDENT Rh incompatibility PAST SURGICAL HISTORY Procedure Laterality Date APPENDECTOMY 11/2020 MYRINGOTOMY ASPIR&/EUSTACHIAN TUBE NFLTJ ANES Myringotomy/tubesX4 PAST SURGICAL HISTORY OF EXCISION OF A MOLE PAST SURGICAL HISTORY OF lump removal r.post auricular TONSILLECTOMY PRIMARY/SECONDARY <AGE 12 ALLERGIES No Known Allergies Issues and questions to be addressed: Medications cyanocobalamin (B-12 DOTS) 500 mcg tablet Take by mouth once daily. ergocalciferol, vitamin D2, (VITAMIN D2 ORAL) Take by mouth. montelukast (SINGULAIR) 10 mg tablet Take 10 mg by mouth daily at bedtime. Desogestrel-Ethinyl Estradiol (APRI) 0.15-0.03 mg per tablet Take 1 tablet by mouth once daily. rizatriptan (MAXALT) 10 mg tablet 1 tab at earliest sign of migraine. May repeat once in 2 hours if needed. Give max allowed per insurance. loratadine (CLARITIN) 10 mg tablet 10 mg. Azelastine HCl (OPTIVAR) 0.05 % ophthalmic solution I have reviewed the [facility] Status Assessment responses and discussed these with the patient: Yes, Angela Liu APRN.DECORATING INSPECTOR HIT-6 08/15/2020 11/27/2020 08/24/2023 HIT-6 62 (Severe impact) 55 (Moderate impact) 66 (Severe impact) JENNIE - 2/7 SCORES 12/14/2020 08/24/2023 JENNIE-2 Score 1 0 Migraine Specific QOL - Higher scores indicate better HRQL 08/15/2020 11/27/2020 08/24/2023 Role Function-Restrictive Transformed Score (range: 0-100) 68.57 100 45.71 Role Function-Preventive Transformed Score (range: 0-100) 90 100 80 Emotional Function Transformed Score (range: 0-100) 93.33 100 66.67 PHQ-9 08/15/2020 11/27/2020 08/24/2023 Score 5 2 3 Studies to Review: No New Health Issues: No New Social History: No New Family History: No Review of Systems: Sleep: Trouble staying asleep at times. Does wake through the night. Possible snoring. Mood: Stable. Energy: Fair. Weight gain of 7 lbs when she restarted Amitriptyline. Exercising: No. Physical Examination: BP 118/64 Pulse 72 Ht 168.9 cm (5' 6.5 ) Wt 72.6 kg (160 lb) LMP 09/10/2022 (Exact Date) BMI 25.44 kg/m General: Well appearing, in no acute distress, alert. HEENT: Normocephalic/atraumatic. No carotid bruits auscultated. Skin: Color, texture, turgor normal. No rashes or lesions. Lungs: Normal breath sounds bilaterally. CV: RRR, normal S1, S2 auscultated, and no murmurs. Musculoskeletal: No gross joint deformities. No tenderness to palpation of cervical spine and upper trapezius with mild hypertonicity. Suboccipital tenderness on R > L. Neurological: Normal mental status. Cranial nerves II-XII intact. Normal tone and strength. Normal coordination. DTRs are intact and symmetric bilaterally. Normal primary gait. IMPRESSION: Intractable migraine without aura and without status migrainosus (primary encounter diagnosis) Migraine without aura and without status migrainosus, not intractable MsAnahy Cosme is a 37-year-old female with history significant for migraine, depression and anxiety. Her headaches are most consistent with episodic migraine at this time. She does report an intractable migraine over the past 8 days. Rizatriptan is not effective. She was restarted on Amitriptyline but stopped due to lack of efficacy and side effects. We discussed treatment options and she will complete Medrol dose pack for intractable migraine. We will trial Ubrelvy for migraine rescue given trial and failure of multiple triptans. She will start Topamax for migraine prevention. Neurological examination is essentially normal at this visit. We will get a precert for an Oral Calcitonin Gene-Related Peptide Receptor Antagonist (GEPANT) Ubrogepant for the rescue treatment of episodic migraine. This patient meets AHS criteria for treatment of migraine with an oral small molecule CGRP antagonist GEPANT. The FDA has approved GEPANTS for the treatment of migraine. Specifically, the patient has 8 headaches per month, lasting 4 or more hours/day associated with nausea, neck pain, dizziness for three or more months. Medication overuse headache has been ruled out. Patient will not use with another GEPANT. The patient has tried and failed the following : The following preventative medications have been tried without benefit: Anti-Convulsant Topiramate (Topamax, Trokendi XL, Qudexy) Anti-Depressant and Antipsychotic Amitriptyline (Elavil) Escitalopram (Lexapro) The following abortive medications have been tried but require high frequency use which can lead to Medication Overuse Headache: Anti-Anxiety Buspirone (Buspar) Anti-Migraine Rizatriptan (Maxalt) Sumatriptan (Imitrex, Sumavel) PLAN: HEADACHE MANAGEMENT: (You are the primary guardian of your health and headache. Keep track of all medications: This includes the reason for use, side effects and benefits.) MEDICATION TREATMENT: Abortive therapy: -Trial Ubrelvy as needed for migraine. Bridging therapy: -Medrol dose pack. Preventive therapy: -Trial Topamax. Headache education was done. Discussed triggers and lifestyle modifications. Discussed treatment options including preventive and acute medications, natural supplements, and infusion therapy. Discussed medication overuse headache and to limit use of acute treatments to no more than 2 days/week or 10 days/month. Discussed medication side effects, adverse reactions and drug interactions. Written educational materials and patient instructions outlining all of the above were given. Follow-up: 4 months, PRN Level of service: Est level 4 (30-39 min). Time spent 30 min on the day of service, which included preparing to see the patient, [id number] patient care, completing clinical documentation, obtaining and/or reviewing separately obtained history, performing a medically appropriate examination, counseling and educating the patient/family/caregiver, and ordering medications, tests, or procedures. Angela Liu APRN.KELLY documented in this encounter [facility] 10-01-2022 Note HNO ID: [id number] Author: Alida Burns APRN.DECORATING INSPECTOR Service: ? Author Type: Nurse Practitioner Type: Progress Notes Filed: 10/01/2022 9:18 AM Note Text: Manager Loss Prevention offered: Patient declinesAnahy Mckee is a 37 year old who presents for an annual gynecologic exam without complaints. Always has a large amount of vaginal discharge - no odor or itching. .Menses: cycles every 28-30 days and 4 days of flow. Apri for menstrual control. Contraception: vasectomy HPV vaccine: No Last Pap: 2016 normal HPV: N/A History of abnormal pap: No Last mammogram: 08/21/2020 normal Sexually active: Yes Patient concerns for STD exposure: No. Time with current partner: 17 years Pain with intercourse: No Postcoital bleeding: No Documentation from previous visit of 09/12/2021 was copied and pasted, documentation has been reviewed and edited as necessary for today's visit. OB History T2 L2 SAB0 IAB1 Ectopic0 Multiple0 Live Births2 Ethologist History LMP: 08/29/2021 (Exact Date), Having periods Age at Menarche: Age at First : Age at Menopause: Ethologist History Comments: Sexual Activity: Yes; Male Contraception: Vasectomy, Pill PAST MEDICAL HISTORY Diagnosis Date Anxiety disorder, unspecified 01/18/2019 DEPRESSION FRACTURE AGE 9 ARM,PLAYGROUND ACCIDENT Rh incompatibility PAST SURGICAL HISTORY Procedure Laterality Date APPENDECTOMY 11/2020 INCISION EARDRUM,ASPIR,GEN ANESTH Myringotomy/tubesX4 PAST SURGICAL HISTORY OF EXCISION OF A MOLE PAST SURGICAL HISTORY OF lump removal r.post auricular REMOVAL OF TONSILS,<12 Y/O FAMILY HISTORY Problem Relation Age of Onset Diabetes Mother Cancer Mother SKIN CANCER Hypertension Father other (HODGKINS) Brother Cancer Maternal Grandmother SKIN CANCER Breast Cancer Maternal Grandmother 95 breast cancer Heart Maternal Grandfather Hypertension Paternal Grandmother Lipids Paternal Grandmother Stroke Paternal Grandmother mini strokes Alzheimer's Disease Paternal Grandmother Heart Paternal Grandfather Thyroid Maternal Aunt SOCIAL HISTORY Social History Tobacco Use Smoking status: Former Years: 3.00 Types: Cigarettes Quit date: 07/22/2012 Years since quittin.2 Smokeless tobacco: Never Vaping Use Vaping Use: Never used Substance Use Topics Alcohol use: Yes Comment: once in awhile,NOT WHILE Drug use: No REVIEW OF SYSTEMS Abdomen: No abdominal pain, nausea, vomiting, diarrhea, or constipation. No bloating, early satiety, indigestion, or increased flatulence. Bladder: No dysuria, gross hematuria, urinary frequency, urinary urgency, + stress incontinence. Especially when sneezing. Breast: No breast lumps, nipple d/c, overlying skin changes, redness or skin retraction. Allergies and current medication updated:Yes EXAM: BP 102/68 Ht 5' 6.5 (1.69m) Wt 159 lb (72.1kg) LMP 09/10/2022 BMI 25.28 kg/(m2). GENERAL: pleasant, female in no apparent distress HEENT: Normocephalic, atraumatic, mucus membranes moist, and no lesions NECK: Supple, full range of motion, no adenopathy, and thyroid normal DERMATOLOGY: Normal, without lesions, non-icteric, and non-hirsute BREAST: soft, non-tender, symmetric, no dominant mass, normal nipple-areolar complex, no lymphadenopathy, and no nipple discharge CHEST: Normal inspiratory effort ABDOMEN: soft, non-tender, and no masses PELVIC: external genitalia normal, normal Bartholin's glands, urethra, Pottsgrove's glands, no vulvar lesions, no cervical lesions, moderate amount thick pale yellow discharge present, normal appearing perineal body and perianal region. Cervix with contact bleeding. BIMANUAL: uterus normal size, shape and consistency, no adnexal masses, and non-tender RECTOVAGINAL: deferred. NEURO: alert and oriented x3,exam grossly non-focal EXTREMITIES: normal ASSESSMENT/PLAN: 1) Health maintenance: Pap done with HPV. Mammogram starting age 40. Nutrition, exercise and routine health maintenance exams reviewed. 2. Vaginal discharge - ICD9: 623.5, ICD10: N89.8 - MAGDY / TRICHOMONAS AMPLIFICATION - BACTERIAL VAGINOSIS AMPLIFICATION 3. Stress incontinence - ICD9: [id number], ICD10: N39.3 - Discussed Kegel exercises and given written instruction. 4. Surveillance for control, oral contraceptives - ICD9: V25.41, ICD10: Z30.41 - Refill Apri - discussed with patient on how to take OCP's. - counseled on benefits, risks and possible severe side effects of OCP's. - discussed need to use Condoms to help to prevent STD's including HIV etc. - DESOGESTREL 0.15 MG-ETHINYL ESTRADIOL 0.03 MG TABLET 5) Contraception: vasectomy. Contraceptive options reviewed and information provided. 6) STD screening: Declined STD check. 7) Follow up one year or sooner as needed Alida Burns APRN.CNP [facility] 10-01-2022 Instructions Alida Burns APRN.KELLY - 10/01/2022 8:58 AM EST Taking a women's health probiotic would definitely help . Florajen Women can be purchased at a pharmacy or on [employer] (around $20/month, needs refrigerated and take it daily)or [employer] ($35/month, no refrigeration and take 15 consecutive days per month) can be ordered at [employer] and use code [id number]. You can also RepHresh vaginally and it can be purchased with the feminine products in many stores. You need to separate any antibiotic and probiotic by 1-2 hours. Avoid bladder irritants - spicy, citrus, tomatoes, smoking, coffee, tea, pop, carbonation, artificial sweeteners and alcohol. How To Perform Pelvic Floor (Kegel) Exercises These exercises help to strengthen the pelvic floor muscles and can help improve bladder control for women. 1. You should have been instructed in the office how to contract these muscles. At home, you can insert two fingers in the vagina and feel the contraction of these muscles as you squeeze. We call these muscles the pelvic floor because they help support the pelvic organs, especially during coughing and sneezing. Squeezing the pelvic floor while standing feels like you are lifting the area around the vagina, and will interrupt the stream of urine while voiding. Once you are certain which muscles to use, do not exercise while urinating. Make sure you are not bearing down, squeezing your buttocks, or straining abdominally: these are not the muscles to be exercised. You may wish to place hands on your buttock muscles to keep these muscles relaxed while performing the exercises. 2. Squeeze these muscles as hard as you can for a slow count of five, eventually working up to a slow count of ten. Rest for 15 seconds, and then start another contraction. At first. these muscles may feel sore, just as other muscles may feel sore after exercise. 3. You should perform 50 squeezes every day: make sure every squeeze count by oliver as hard as you can! Many women try to do these exercises in sets of five or ten at a time. Remind yourself to do these exercises by starting them every time you are waiting at a red light, watching a television commercial, or on hold on the telephone. If you are having trouble concentrating, you may want to set aside a special time to perform sets of pelvic floor exercises. 4. In addition to the long, hard contractions you are doing try doing some quick flicks of these muscles throughout the day. 5. You should be seen in the office after starting these exercises to make sure you are performing the contraction correctly: you may have never known how to contract these muscles before starting pelvic floor exercises, and many patients mistakenly exercise the wrong muscles. If you still feel frustrated about which muscles to use ask us for help. There are physical therapy specialists who work with pelvic floor muscles. 6. Work hard! As with any exercise program, improvement often is related to how faithfully you adhere to your exercise program. Pelvic floor exercises do not have the side effects and expense associated with other treatments for urinary incontinence, and have been known to help with severe stress incontinence. It may take several months to see the full effect of your exercise program: if you are easily discouraged, see your doctor or doctor at regular visits to assess what progress you are making. Techniques to avoid urinary accidents: Empty your bladder regularly and prior to physical activity. Avoid activity that causes leakage, if possible. Avoid or moderate the intake of alcohol and caffeine products. Try to restrict fluids prior to planned activities. Wear appropriate protection. Prevent chronic coughing which can cause a loss of urinary control. Ways to prevent chronic coughing include treating asthma, restricting smoking, and removing allergy-causing agents from your environment. documented in this encounter [facility] 10-01-2022 History of Presen t illness Narrative Manager Loss Prevention offered: Patient declines. Rylee is a 37 year old who presents for an annual gynecologic exam without complaints. Always has a large amount of vaginal discharge - no odor or itching. .Menses: cycles every 28-30 days and 4 days of flow. Apri for menstrual control. Contraception: vasectomy HPV vaccine: No Last Pap: 2017 normal HPV: N/A History of abnormal pap: No Last mammogram: 08/21/2020 normal Sexually active: Yes Patient concerns for STD exposure: No. Time with current partner: 17 years Pain with intercourse: No Postcoital bleeding: No Documentation from previous visit of 09/12/2021 was copied and pasted, documentation has been reviewed and edited as necessary for today's visit. OB History T2 L2 SAB0 IAB1 Ectopic0 Multiple0 Live Births2 Ethologist History LMP: 08/29/2021 (Exact Date), Having periods Age at Menarche: Age at First : Age at Menopause: Ethologist History Comments: Sexual Activity: Yes; Male Contraception: Vasectomy, Pill PAST MEDICAL HISTORY Diagnosis Date Anxiety disorder, unspecified 01/18/2019 DEPRESSION FRACTURE AGE 9 ARM,PLAYGROUND ACCIDENT Rh incompatibility PAST SURGICAL HISTORY Procedure Laterality Date APPENDECTOMY 11/2020 INCISION EARDRUM,ASPIR,GEN ANESTH Myringotomy/tubesX4 PAST SURGICAL HISTORY OF EXCISION OF A MOLE PAST SURGICAL HISTORY OF lump removal r.post auricular REMOVAL OF TONSILS,<12 Y/O FAMILY HISTORY Problem Relation Age of Onset Diabetes Mother Cancer Mother SKIN CANCER Hypertension Father other (HODGKINS) Brother Cancer Maternal Grandmother SKIN CANCER Breast Cancer Maternal Grandmother 95 breast cancer Heart Maternal Grandfather Hypertension Paternal Grandmother Lipids Paternal Grandmother Stroke Paternal Grandmother mini strokes Alzheimer's Disease Paternal Grandmother Heart Paternal Grandfather Thyroid Maternal Aunt SOCIAL HISTORY Social History Tobacco Use Smoking status: Former Years: 3.00 Types: Cigarettes Quit date: 07/22/2012 Years since quittin.2 Smokeless tobacco: Never Vaping Use Vaping Use: Never used Substance Use Topics Alcohol use: Yes Comment: once in awhile,NOT WHILE Drug use: No REVIEW OF SYSTEMS Abdomen: No abdominal pain, nausea, vomiting, diarrhea, or constipation. No bloating, early satiety, indigestion, or increased flatulence. Bladder: No dysuria, gross hematuria, urinary frequency, urinary urgency, + stress incontinence. Especially when sneezing. Breast: No breast lumps, nipple d/c, overlying skin changes, redness or skin retraction. Allergies and current medication updated:Yes EXAM: BP 102/68 Ht 5' 6.5 (1.69m) Wt 159 lb (72.1kg) LMP 09/10/2022 BMI 25.28 kg/(m^2). GENERAL: pleasant, female in no apparent distress HEENT: Normocephalic, atraumatic, mucus membranes moist, and no lesions NECK: Supple, full range of motion, no adenopathy, and thyroid normal DERMATOLOGY: Normal, without lesions, non-icteric, and non-hirsute BREAST: soft, non-tender, symmetric, no dominant mass, normal nipple-areolar complex, no lymphadenopathy, and no nipple discharge CHEST: Normal inspiratory effort ABDOMEN: soft, non-tender, and no masses PELVIC: external genitalia normal, normal Bartholin's glands, urethra, Pottsgrove's glands, no vulvar lesions, no cervical lesions, moderate amount thick pale yellow discharge present, normal appearing perineal body and perianal region. Cervix with contact bleeding. BIMANUAL: uterus normal size, shape and consistency, no adnexal masses, and non-tender RECTOVAGINAL: deferred. NEURO: alert and oriented x3,exam grossly non-focal EXTREMITIES: normal ASSESSMENT/PLAN: 1) Health maintenance: Pap done with HPV. Mammogram starting age 40. Nutrition, exercise and routine health maintenance exams reviewed. 2. Vaginal discharge - ICD9: 623.5, ICD10: N89.8 - MAGDY / TRICHOMONAS AMPLIFICATION - BACTERIAL VAGINOSIS AMPLIFICATION 3. Stress incontinence - ICD9: [id number], ICD10: N39.3 - Discussed Kegel exercises and given written instruction. 4. Surveillance for control, oral contraceptives - ICD9: V25.41, ICD10: Z30.41 - Refill Apri - discussed with patient on how to take OCP's. - counseled on benefits, risks and possible severe side effects of OCP's. - discussed need to use Condoms to help to prevent STD's including HIV etc. - DESOGESTREL 0.15 MG-ETHINYL ESTRADIOL 0.03 MG TABLET 5) Contraception: vasectomy. Contraceptive options reviewed and information provided. 6) STD screening: Declined STD check. 7) Follow up one year or sooner as needed Alida Burns APRN.DECORATING INSPECTOR documented in this encounter [facility] documented as of this encounter (statuses as of 10/01/2022) [facility] History of Past illness Narrative* Problem Noted Date Resolved Date Chronic tension-type headache, intractable 08/1712/20/2020 Intractable chronic migraine without aura and with status migrainosus 08/17/2020 12/20/2020 Chronic migraine without aur a, with intractable migraine, so stated, with status migrainosus 08/17/2020 12/20/2020 Chronic daily headache 08/17/2020 GBS (group B Streptococcus c arrier), +RV culture, currently 03/02/2013 08/17/2014 Supervision of other normal 08/16/2012 04/25/2015 Overview: Declines NT. needs rhogam 08/09/2012 04/25/2015 History of depression 08/05/2012 04/25/2015 Overview: 08/05/2012 Pt has a history of depression diagnosed in [address] Castro. She has been off medication for 1-1/2 years . Discussed increased risks of depression during and and importance of reporting the development or worsening of symptoms should they occur. Pt denies ever having any suicidal thoughts or tendencies or thoughts of hurting others. Quit smoking 08/05/2012 04/25/2015 Overview: 08/05/2012Pt recently quit smoking July 22. Discussed risks of smoking during and advised pt to continue not smoking. documented as of this encounter (statuses as of 10/13/2022) [facility] History of Past illness Narrative* Problem Noted Date Diagnosed Date Resolved Date Chronic tension-type headache, intractable 08/17/2020 12/20/2020 Intractable chronic migraine without aura and with status migrainosus 08/17/2020 12/20/2020 Chronic migraine without aur a, with intractable migraine, so stated, with status migrainosus 08/17/2020 12/20/2020 Chronic daily headache 08/17/202012/20 GBS (group B Streptococcus c arrier), +RV culture, currently 03/02/2013 08/17/2014 Supervision of other normal 08/16/2012 04/25/2015 Overview: Declines NT. needs rhogam 08/09/2012 04/25/2015 History of depression 08/05/20122014 Overview: 08/05/2012 Pt has a history of depression diagnosed in [address] Castro. She has been off medication for 1-1/2 years . Discussed increased risks of depression during and and importance of reporting the development or worsening of symptoms should they occur. Pt denies ever having any suicidal thoughts or tendencies or thoughts of hurting others. Quit smoking 08/05/2012 04/25/2015 Overview: 08/05/2012Pt recently quit smoking July 22. Discussed risks of smoking during and advised pt to continue not smoking. documented as of this encounter (statuses as of 08/26/2023) [facility] History of Past illness Narrative* Problem Noted Date Diagnosed Date Resolved Date Chronic tension-type headache, intractable 08/17/2020 12/20/2020 Intractable chronic migraine without aura and with status migrainosus 08/17/2020 12/20/2020 Chronic migraine without aur a, with intractable migraine, so stated, with status migrainosus 08/17/2020 12/20/2020 Chronic daily headache 08/17/202012/20 GBS (group B Streptococcus c arrier), +RV culture, currently 03/02/2013 08/17/2014 Supervision of other normal 08/16/2012 04/25/2015 Overview: Declines NT. needs rhogam 08/09/2012 04/25/2015 History of depression 08/05/20122014 Overview: 08/05/2012 Pt has a history of depression diagnosed in [address] Castro. She has been off medication for 1-1/2 years . Discussed increased risks of depression during and and importance of reporting the development or worsening of symptoms should they occur. Pt denies ever having any suicidal thoughts or tendencies or thoughts of hurting others. Quit smoking 08/05/2012 04/25/2015 Overview: 08/05/2012Pt recently quit smoking July 22. Discussed risks of smoking during and advised pt to continue not smoking. documented as of this encounter (statuses as of 09/02/2023) [facility] Encounter for gynecological examination with abnormal finding- Primary Routine gynecological examination Vaginal discharge Leukorrhea, not specified as infective Stress incontinence Female stress incontinence Surveillance for control, oral contraceptives Surveillance of previously prescribed contraceptive pill Screening for cervical cancer Screening for malignant neoplasm of the cervix Encounter for screening for human papillomavirus (HPV) Special screening examination for human papillomavirus (HPV) [facility] Diagnosis Surveillance for control, oral contraceptives Surveillance of previously prescribed contraceptive pill [facility] Diagnosis Intractable migraine without aura and without status migrainosus- Primary Migraine without aura, with intractable migraine, so stated, without mention of status migrainosus Migraine without aura and without status migrainosus, not intractable Migraine without aura, without mention of intractable migraine without mention of status migrainosus documented in this encounter [facility] Summary Purpose Family History No Family History Records FoundNo Family History Records FoundNo Family History Records Found Advance Directives No Advanced Directives Records FoundNo Advanced Directives Records FoundNo Advanced Directives Records Found Additional Source Comments INFORMATION SOURCE (unrecogn ized section and content) DATE CREATED AUTHOR AUTHOR'S ORGANIZ ATION 07/26/2018 [facility] DATE CREATED AUTHOR AUTHOR'S ORGANIZ ATION 09/20/2023 [facility] Source Comments (unrecognize d section and content) In the event this informatio n is protected by the Federal Confidentiality of Alcohol and Drug Abuse Patient Records regulations: The Federal rules restrict any use of the information to criminally investigate or prosecute any alcohol or drug abuse patient.[facility] the event this information is protected by the Federal Confidentiality of Alcohol and Drug Abuse Patient Records regulations: The Federal rules restrict any use of the information to criminally investigate or prosecute any alcohol or drug abuse patient.[facility] the event this information is protected by the Federal Confidentiality of Alcohol and Drug Abuse Patient Records regulations: The Federal rules restrict any use of the information to criminally investigate or prosecute any alcohol or drug abuse patient.[facility] the event this information is protected by the Federal Confidentiality of Alcohol and Drug Abuse Patient Records regulations: The Federal rules restrict any use of the information to criminally investigate or prosecute any alcohol or drug abuse patient.[facility] Reason for Visit (unrecogniz ed section and content) Reason Comments Refill Request Reason Comments Follow Up Reason Comments Insurance Authorization Ubrelvy Care Teams (unrecognized sec tion and content) Driver Medic Relationship Specialty Start Date End Date Shireen Castro MD PCP - General Internal Medicine 03/14/13 Driver Medic Relationship Specialty Start Date End Date Shireen Castro MD PCP - General Internal Medicine 03/14/13 Driver Medic Relationship Specialty Start Date End Date Shireen Castro MD PCP - General Internal Medicine 03/14/13 FOR RECORDS PERTAINING TO PATIENTS WHO ARE OR HAVE BEEN ENROLLED IN A CHEMICAL DEPENDENCY/SUBSTANCEABUSE PROGRAM, SOME INFORMATION MAY BE OMITTED. This clinical summary was aggregated from multiple sources. Caution should be exercised in using it in the provision of clinical care. This summary normalizes information from multiple sources, and as a consequence, information in this document may materially change the coding, format and clinical context of patient data. In addition, data may be omitted in some cases. CLINICAL DECISIONS SHOULD BE BASED ON THE PRIMARY CLINICAL RECORDS. [facility]. provides no warranty or guarantee of the accuracy or completeness of information in this document.
[2023-11-14 00:23] LABS: Calprotectin, Stool 10 ug/g (0-120)
== END | disposition home or self-care (01) ==
LOC: LABSPEC 08:35
PROVIDERS: PCP Internal Medicine; Referring Provider Internal Medicine; Visit Provider Internal Medicine
DX: R19.7 Diarrhea, unspecified (principal)
CPT/HCPCS: 83630; 83993; 87506

== ENCOUNTER → 2024-11-07 | Outpatient (CLI) | payer BC, SELFPAY | END | disposition home or self-care (01) | PROVIDERS: PCP Internal Medicine; Referring Provider Obstetrics & Gynecology; Visit Provider Obstetrics & Gynecology | DX: N76.0 Acute vaginitis (principal) | CPT/HCPCS: 87070; 87205 ==

== ENCOUNTER → 2024-11-09 | Outpatient (CLI) | payer BC, SELFPAY ==
[2024-11-09 12:31] LABS: Vitamin B12 > 2000 pg/mL (211-911); Vitamin D,25 Hydroxy 40.8 ng/mL
[2024-11-09 12:41] LABS: ALB/GLOB Ratio 0.8 RATIO (0.9-2.4); AST(SGOT) 12 U/L (15-37); Alanine Aminotransfer ALT/SGPT 23 U/L (13-56); Albumin, Serum 3.5 g/dL (3.2-5.0); Alkaline Phosphatase 117 U/L (45-117); Anion Gap 4 (5-15); BUN 7 mg/dL (7-18); BUN/Creat Ratio 8.7 RATIO (10-20); Calcium,Total 9.5 mg/dL (8.5-10.1); Chloride 106 mmol/L (98-107); Cholesterol 196 mg/dL (200); Creatinine, Serum 0.81 mg/dL (0.55-1.02); EST Glomerular Filtration Rate 84 mL/min (>60); Est Glom Filt Rate - Afr Amer 102 mL/min (>60); Globulin 4.3 g/dL (2.2-4.2); Glucose 88 mg/dL (74-106); High Density Lipoprotein 90 mg/dL; Potassium 4.2 mmol/L (3.5-5.1); Protein, Total 7.8 g/dL (6.4-8.2); Sodium Level 137 mmol/L (136-145); Triglycerides 166 mg/dL; Very Low Density Lipoprotein 33 mg/dL (5-40)
[2024-11-09 13:10] LABS: Absolute Lymphocyte Count 2.31 X10^3/uL (0.83-4.51); Absolute Neutrophil Count 4.3 X10^3/uL (2.0-7.7); Basophil# 0.07 X10^3/uL; Eosinophil# 0.13 X10^3/uL; Eosinophils% 1.8 % (0-5); Hematocrit 43.9 % (37-47); Hemoglobin 14.2 g/dL (12.0-15.0); Lymphocyte # 2.31 X10^3/ul (0.83-4.51); Lymphocyte % 31.9 % (19-41); Mean Corp Hgb Conc 32.3 g/dL (32-36); Mean Corpuscular Hgb 28.8 pg (27.0-32.0); Mean Platelet Vol. 10.2 fl (6.2-12.0); Monocyte# 0.48 X10^3/uL; Monocyte% 6.6 % (0-10); NRBC Flagged by Analyzer 0 % (0-5); Neutrophil # 4.25 X10^3/uL (2.7-7.7); Neutrophil % 58.6 % (47-70); Platelet Count 449 K/mm3 (150-450); RBC Distribution Width CV 12.5 % (11.6-14.6); RBC Distribution Width SD 40.9 fl (35.1-43.9); Red Blood Count 4.93 M/mm3 (4.2-5.4); White Blood Count 7.3 K/mm3 (4.4-11.0)
== END | disposition home or self-care (01) ==
LOC: BIMLAB 10:41
PROVIDERS: PCP Internal Medicine; Referring Provider Internal Medicine; Visit Provider Internal Medicine
DX: Z00.00 Encounter for general adult medical examination without abnormal findings (principal); E56.9 Vitamin deficiency, unspecified
CPT/HCPCS: 36415; 80053; 80061; 82306; 82607; 85025

== ENCOUNTER → 2025-04-03 | Outpatient (CLI) | payer BC, SELFPAY ==
--- NOTE | 2025-04-03 11:18 | MRI_ITS ---
PROCEDURE: SPINE LUMBAR (ROUTINE) 04/03/2025 REASON FOR EXAM: PAIN TECHNIQUE: Multiplanar and multisequence images were obtained without IV contrast administration. COMPARISON: Radiographs on 02/23/2025. FINDINGS: Multilevel disc dehydration. Multilevel disc space narrowing. There is normal signal intensity from the visualized bone marrow without evidence of replacement or acute fracture. The conus is unremarkable. Mildly exaggerated lumbar lordosis. Evaluation of the individual levels revealed the following: L5-S1: Grade 1 anterolisthesis measuring 4.2 mm. Moderate diffuse disc bulge. Superimposed broad-based central/left paracentral disc protrusion measuring 5.3 mm. Another superimposed broad-based left foraminal disc protrusion measuring 4.6 mm. Bilateral facet joint arthropathy. The spinal canal is not narrowed. Mild bilateral neural foraminal narrowing. L4-5: Grade 1 retrolisthesis measuring 3.5 mm. Mild diffuse disc bulge. Superimposed broad-based left paracentral disc protrusion measuring 4.3 mm. The spinal canal is not narrowed. Mild bilateral neural foramina narrowing. L3-4: Grade 1 retrolisthesis measuring 3.5 mm. Mild diffuse disc bulge. Superimposed broad-based right paracentral disc protrusion measuring 5.2 mm. Mild bilateral ligamentum flavum hypertrophy. The spinal canal is not narrowed. Mild bilateral neural foramina narrowing. L2-3: There is no evidence of disk herniation. The spinal canal is not narrowed. There is no evidence of neural foramina narrowing. L1-2: There is no evidence of disk herniation. The spinal canal is not narrowed. There is no evidence of neural foramina narrowing. Normal visualized paraspinous soft tissue structures. MRI/Spine Lumbar (Routine) IMPRESSION: Degenerative disc disease. [facility]
== END | disposition home or self-care (01) ==
PROVIDERS: PCP Internal Medicine; Referring Provider Student in an Organized Health Care Education/Training Program; Visit Provider Student in an Organized Health Care Education/Training Program
DX: M47.816 Spondylosis without myelopathy or radiculopathy, lumbar region (principal)
CPT/HCPCS: 72148